=== PATIENT | male | born 1970 | race Caucasian/White ===

== ENCOUNTER 2018-09-26 14:12 | Inpatient (IN) | payer MEDICARE, MEDICAID ==
[~2018-09-26] VITALS: Ht 175.3 cm; Wt 80.3 kg
--- NOTE | 2018-09-26 14:19 | NUR ---
ARCENIO RICHARD FROM [facility] FOR EVAL AND TX OF WOUND, BOTH FEET. WOUNDS ARE OPEN TO AIR, CRUSTY. PT AOX4, VSS, RR EVEN AND UNLABORED ON RA. TO ER BED 13, MADE COMFORTABLE AND READY FOR EVAL.
[2018-09-26] MEDS ORDERED: ONDANSETRON HCL/PF 4 MG/2 ML VIAL ONE (14:42)
[2018-09-26] MEDS ORDERED: MORPHINE SULFATE INJ 4 MG/ML DISP.SYRIN ONE (14:42)
[2018-09-26] MEDS ORDERED: MORPHINE SULFATE INJ 2 MG/ML DISP.SYRIN IV ONE (15:00)
[2018-09-26] MEDS ORDERED: ONDANSETRON HCL/PF 4 MG/2 ML VIAL IVP ONE (15:00)
[2018-09-26] MEDS ORDERED: IV NS 0.9% 1,000 ML BAG IV ONE (15:00)
[2018-09-26 15:10] LABS: BASOPHILS % (AUTO) 0.4 % (0.0-2.0); EOSINOPHILS % (AUTO) 1.3 % (0.0-6.0); HEMATOCRIT 27 % (39-51); LYMPHOCYTES # (AUTO) 0.9 /CMM (0.8-4.8); LYMPHOCYTES % (AUTO) 8.9 % (20.0-44.0); MEAN CORPUSCULAR HGB CONC 33 g/dl (31.0-36.0); MEAN CORPUSCULAR VOLUME 80 fL (80-96); MONOCYTES # (AUTO) 0.6 /CMM (0.1-1.30); MONOCYTES % (AUTO) 5.7 % (2.0-12.0); NEUTROPHILS # (AUTO) 8.7 /CMM (1.8-8.9); NEUTROPHILS % (AUTO) 83.7 % (43.0-81.0); PLATELET COUNT (AUTO) 533 /CMM (150-450); RED BLOOD CELL COUNT(AUTO) 3.38 MIL/uL (4.5-6.0); WHITE BLOOD COUNT (AUTO) 10.4 K/uL (4.3-11.0)
[2018-09-26] MEDS ORDERED: AMOX875T2 PO (15:14)
[2018-09-26 15:17] LABS: CALCIUM, SERUM 8.4 mg/dL (8.5-10.1); CREATININE 1.1 mg/dL (0.6-1.3); POTASSIUM 4.3 mmol/L (3.5-5.1)
--- NOTE | 2018-09-26 15:17 | NUR ---
URINE SENT TO STAT LAB
[2018-09-26 15:22] LABS: ALBUMIN 2.4 g/dL (3.4-5.0); BILIRUBIN,DIRECT 0.2 mg/dL (0.0-0.2); BILIRUBIN,TOTAL 0.9 mg/dL (0.2-1.0); TOTAL PROTEIN, SERUM 8.6 g/dL (6.4-8.2)
[2018-09-26] MEDS ORDERED: PIPERACILLIN /TAZOBACTAM 3.375 G in IV D5W 50 ML IV ONE ×2 (16:00→23:30)
[2018-09-26] MEDS ORDERED: VANCOMYCIN 1 GM in IV D5W 250 ML IV ONE (16:00)
--- NOTE | 2018-09-26 16:02 | NUR ---
[facility] 315-2 Addendum: 09/26/18 at 1603 by STELLA 315-1
--- NOTE | 2018-09-26 16:18 | NUR ---
Patient is resting comfortably in bed with eyes closed. Easily aroused. VSS
[2018-09-26] MEDS ORDERED: VANCOMYCIN 1 GM VIAL ONE (16:34)
[2018-09-26] MEDS ORDERED: PIPERACILLIN /TAZOBACTAM 3.375 G VIAL IV ONE ×2 (16:34→23:28)
--- NOTE | 2018-09-26 17:57 | NUR ---
REPORT GIVEN TO LAMBERTO ÁLVAREZ FOR 315-1 MS
--- NOTE | 2018-09-26 18:00 | NUR ---
[facility]
--- NOTE | 2018-09-26 18:20 | NUR ---
MS RN RECEIVED A NEW ADMISSION FROM ER, CAME IN W/ DX OF OSTEOMYELITIS AND HYPONATREMIA, 48 YEAR OLD MALE, AWAKE, ALERT,ORIENTED X4,NOT IN EWA FORM OF DISTRESS, LEFT FOOT CELLULITIS/OSTEOMYELITIS, DENIES PAIN AT THIS TIME, WILL MONITOR PATIENT'S CONDITION.ALL NEEDS ATTENDED.
[2018-09-26] MEDS ORDERED: MAGNESIUM HYDROXIDE 30 ML UDC PO PRN (18:30)
[2018-09-26] MEDS ORDERED: ZOLPIDEM TARTRATE 5 MG TABLET PO PRN (18:30)
[2018-09-26] MEDS ORDERED: Z GUARD REMEDY 2 OZ OINT TP PRN (18:30)
[2018-09-26] MEDS ORDERED: ACETAMINOPHEN 325 MG TABLET PO PRN (18:30)
[2018-09-26] MEDS ORDERED: MAG HYDROX/AL HYDROX/SIMETH 30 ML UDC PO PRN (18:30)
--- NOTE | 2018-09-26 18:35 | NUR ---
MS RN PATIENT TRANSFERRED TO ROOM 320 BED 1 PER ORDER. WILL ENDORSE TO FLIGHT CONTROL SPECIALIST FOR ADMISSION, CAN'T DO IT AT THIS TIME.
[2018-09-26] MEDS ORDERED: FEE PK DOSING 1 MIN EA MC ONE (18:46)
[2018-09-26 19:30] VITALS: BP 112/74
[2018-09-26 20:00] VITALS: BP 112/74
[2018-09-26] MEDS: IV NS 0.9% 1,000 ML IV PRN (22:06)
[2018-09-26] MEDS: MORPHINE SULFATE INJ 2 MG/ML DISP.SYRIN IV PRN (22:07)
[2018-09-26] MEDS: ONDANSETRON HCL/PF 4 MG/2 ML VIAL IVP PRN (22:08)
[2018-09-26] MEDS: PIPERACILLIN /TAZOBACTAM 3.375 G in IV D5W 50 ML IV SCH (23:34)
[2018-09-27] MEDS: VANCOMYCIN 0.75 GM in IV D5W 250 ML IV SCH ×3 (01:11→17:06)
[2018-09-27] MEDS ORDERED: PIPERACILLIN /TAZOBACTAM 3.375 G VIAL IV ONE (05:22)
--- NOTE | 2018-09-27 05:28 | NUR ---
RECEIVED PATIENT IN BED AWAKE. AO X 3, ABLE TO MAKE NEEDS KNOWN. NO ACUTE DISTRESS NOTED. MONITORED FOR PAIN. IV SITE PATENT, INTACT; FLUSHED. SKIN ASSESSMENT DONE. BOTH FEET COVERED IN DRESSING. SAFETY REMINDERS GIVEN. ON LOW BED WITH BILATERAL UPPER SIDE RAILS UP. CALL JOHN WITHIN EASY REACH. WILL CONTINUE TO MONITOR.
[2018-09-27] MEDS: PIPERACILLIN /TAZOBACTAM 3.375 G in IV D5W 50 ML IV SCH (05:45)
--- NOTE | 2018-09-27 06:00 | NUR ---
PATIENT ASLEEP, EASILY AROUSABLE. RESPIRATIONS EVEN. NO SIGNS OF PAIN NOTED. DUE MEDS GIVEN WITH NO ASE NOTED. IVF INFUSING ORDERED. NEEDS ATTENDED. SAFETY REMINDERS AND COMFORT MEASURES IN PLACE. WILL GIVE REPORT TO DAY SHIFT FOR CONTINUITY OF CARE.
[2018-09-27 06:48] LABS: BASOPHILS % (AUTO) 0.4 % (0.0-2.0); EOSINOPHILS % (AUTO) 3.1 % (0.0-6.0); HEMATOCRIT 22 % (39-51); HEMOGLOBIN 7.4 g/dL (13.5-17.5); LYMPHOCYTES # (AUTO) 0.8 /CMM (0.8-4.8); LYMPHOCYTES % (AUTO) 10.8 % (20.0-44.0); MEAN CORPUSCULAR HGB CONC 35 g/dl (31.0-36.0); MEAN CORPUSCULAR VOLUME 79 fL (80-96); MONOCYTES # (AUTO) 0.7 /CMM (0.1-1.30); MONOCYTES % (AUTO) 8.6 % (2.0-12.0); NEUTROPHILS # (AUTO) 5.9 /CMM (1.8-8.9); NEUTROPHILS % (AUTO) 77.1 % (43.0-81.0); PLATELET COUNT (AUTO) 442 /CMM (150-450); RED BLOOD CELL COUNT(AUTO) 2.73 MIL/uL (4.5-6.0); WHITE BLOOD COUNT (AUTO) 7.6 K/uL (4.3-11.0)
[2018-09-27 07:08] LABS: ALBUMIN 1.9 g/dL (3.4-5.0); BILIRUBIN,TOTAL 0.5 mg/dL (0.2-1.0); CALCIUM, SERUM 8.1 mg/dL (8.5-10.1); CREATININE 1.1 mg/dL (0.6-1.3); MAGNESIUM 1.9 mg/dL (1.8-2.4); PHOSPHORUS 3.6 mg/dL (2.5-4.9); POTASSIUM 4.4 mmol/L (3.5-5.1)
[2018-09-27 07:13] LABS: THYROID STIMULATING HORMONE 1.736 uIU/mL (0.358-3.74)
[2018-09-27 08:00] VITALS: BP 131/69
--- NOTE | 2018-09-27 10:30 | NUR ---
RN NOTE PT WAS RECEIVED FROM [facility] AT THIS TIME, REPORT RECEIVED FROM ISAÍAS ORANTES. PT A/O X3-4, BREATHING EVEN AND UNLABORED ON RA, WITH NO S/S OF ANY DISTRESS OR PAIN AT THIS TIME, IV IS PATENT AND INTACT, SAFETY PRECAUTIONS IN PLACE, CALL LIGHT WITHIN REACH, MONITOR PT ACCORDINGLY
[2018-09-27 11:07] VITALS: BP 95/63
[2018-09-27] MEDS: PIPERACILLIN /TAZOBACTAM 3.375 G in IV D5W 100 ML IV SCH ×2 (11:15→18:02)
[2018-09-27] MEDS: IV NS 0.9% 1,000 ML IV PRN (15:58)
[2018-09-27 16:00] VITALS: BP 120/72
[2018-09-27] MEDS: ONDANSETRON HCL/PF 4 MG/2 ML VIAL IVP PRN (18:24)
--- NOTE | 2018-09-27 18:32 | NUR ---
RN CLOSING NOTE PT IN BED AT LOWEST AND LOCKED POSITION WITH SIDE RAILS UP X2, A/O X3 BREATHING EVEN AND UNLABORED ON RA, NO S/S OF ANY DISTRESS OR PAIN AT THIS TIME, IV ARE PATENT AND INTACT WITH IV ABX CURRENTLY INFUSING, SAFETY PRECAUTIONS IN PLACE, CALL LIGHT WITHIN REACH, ALL NEEDS ATTENDED TOO, WILL ENDORSE TO COMMUNITY ASSISTANT RN FOR GABRIELE
[2018-09-27] MEDS ORDERED: MULT1TAB73 PO (18:37)
[2018-09-27] MEDS ORDERED: LACT1CAP69 PO (18:37)
--- NOTE | 2018-09-27 19:00 | NUR ---
MS RN OPENING NOTES Received patient A/O x4, awake, on Long's position on bed. Denies discomfort at this time. No SOB noted, on RA. With patent peripheral IV line LAC G#20 with NS infusing well @ 75ml/hr as ordered. Kept bed low and locked, siderails up, call light within easy reach. Will continue to monitor accordingly.
[2018-09-27 20:00] VITALS: BP 107/62
[2018-09-27] MEDS: VANCOMYCIN 1.25 GM in IV NS 0.9% 500 ML IV SCH (22:32)
[2018-09-28] MEDS: PIPERACILLIN /TAZOBACTAM 3.375 G in IV D5W 100 ML IV SCH ×3 (03:11→18:11)
[2018-09-28 06:41] LABS: BASOPHILS # (AUTO) 0.1 /CMM (0.0-0.2); BASOPHILS % (AUTO) 0.6 % (0.0-2.0); EOSINOPHILS % (AUTO) 2.7 % (0.0-6.0); HEMATOCRIT 23 % (39-51); LYMPHOCYTES # (AUTO) 0.9 /CMM (0.8-4.8); LYMPHOCYTES % (AUTO) 11.5 % (20.0-44.0); MEAN CORPUSCULAR HGB CONC 35 g/dl (31.0-36.0); MEAN CORPUSCULAR VOLUME 80 fL (80-96); MONOCYTES # (AUTO) 0.6 /CMM (0.1-1.30); MONOCYTES % (AUTO) 7.5 % (2.0-12.0); NEUTROPHILS # (AUTO) 6.4 /CMM (1.8-8.9); NEUTROPHILS % (AUTO) 77.7 % (43.0-81.0); PLATELET COUNT (AUTO) 477 /CMM (150-450); RED BLOOD CELL COUNT(AUTO) 2.87 MIL/uL (4.5-6.0); WHITE BLOOD COUNT (AUTO) 8.3 K/uL (4.3-11.0)
[2018-09-28 06:57] LABS: ALBUMIN 2.1 g/dL (3.4-5.0); BILIRUBIN,TOTAL 0.5 mg/dL (0.2-1.0); CALCIUM, SERUM 8.4 mg/dL (8.5-10.1); CREATININE 1.2 mg/dL (0.6-1.3); POTASSIUM 4.3 mmol/L (3.5-5.1); TOTAL PROTEIN, SERUM 7.6 g/dL (6.4-8.2)
--- NOTE | 2018-09-28 07:00 | NUR ---
RN OPENING NOTE PT IN BED AT LOWEST AND LOCKED POSITION WITH SIDE RAILS UP X2, A/O X3 BREATHING EVEN AND UNLABORED ON RA, NO S/S OF ANY DISTRESS OR PAIN AT THIS TIME, IV ARE PATENT AND INTACT, SAFETY PRECAUTIONS IN PLACE, CALL LIGHT WITHIN REACH, WILL MONITOR PT ACCORDINGLY
--- NOTE | 2018-09-28 07:00 | NUR ---
MS RN CLOSING NOTES Patient asleep, no discomfort noted. No new unusualities noted. Afebrile the whole shift. All due meds given, no ASE noted. All nursing needs attended. Kept bed low and locked. Call light within easy reach. Endorsed to the next shift.
[2018-09-28] MEDS: VANCOMYCIN 1.25 GM in IV NS 0.9% 500 ML IV SCH ×3 (07:11→23:17)
[2018-09-28 07:52] VITALS: BP 132/73
--- NOTE | 2018-09-28 08:00 | NUR ---
MS RN OPENING NOTES Received patient A/O x4, awake, on Long's position on bed. Denies discomfort at this time. No SOB noted, on RA. With patent peripheral IV line LAC G#20 with NS infusing well @ 75ml/hr as ordered. Kept bed low and locked, siderails up, call light within easy reach. On NPO due to left foot abscess debridement.Pt ate breakfast inspite of explaining the risks and benefits of pending sx but pt insists to refuse.Dr Patel aware and cancelled the procedure.Will continue to monitor accordingly.
[2018-09-28 15:40] VITALS: BP 110/72
[2018-09-28] MEDS: LACTOBACILLUS RHAMNOSUS GG 1 EACH CAP.SPRINK GT SCH (16:07)
[2018-09-28] MEDS ORDERED: DEXTROSE 50%-WATER 50 ML DISP.SYRIN IV PRN (17:30)
[2018-09-28] MEDS: INSULIN REGULAR, HUMAN 100 UNIT/ML 3 ML VIAL SQ PRN ×2 (18:04→22:40)
[2018-09-28] MEDS: BLOOD SUGAR DIAGNOSTIC 1 EACH STRIP IN SCH ×2 (18:05→22:15)
--- NOTE | 2018-09-28 18:46 | NUR ---
RN CLOSING NOTE PT IN BED AT LOWEST AND LOCKED POSITION WITH SIDE RAILS UP X2, A/O X3 BREATHING EVEN AND UNLABORED ON RA, NO S/S OF ANY DISTRESS OR PAIN AT THIS TIME, IV ARE PATENT AND INTACT WITH IV ABX CURRENTLY INFUSING, SAFETY PRECAUTIONS IN PLACE, CALL LIGHT WITHIN REACH, ALL NEEDS ATTENDED TOO, WILL ENDORSE TO PUPPET ENGINEER RN FOR GABRIELE
--- NOTE | 2018-09-28 19:20 | NUR ---
RN CLOSING NOTE PT IN BED AT LOWEST AND LOCKED POSITION WITH SIDE RAILS UP X2, A/O X3 BREATHING EVEN AND UNLABORED ON RA, NO S/S OF ANY DISTRESS OR PAIN AT THIS TIME, IV ARE PATENT AND INTACT WITH IV ABX CURRENTLY INFUSING, SAFETY PRECAUTIONS IN PLACE, CALL LIGHT WITHIN REACH, ALL NEEDS ATTENDED TOO, WILL ENDORSE TO HAND COREMAKER RN FOR GABRIELE
--- NOTE | 2018-09-28 19:35 | NUR ---
MS/RN OPENING NOTES PT RECEIVED AWAKE, FINISHING HIS DINNER. ON ROOM AIR, BREATHING EVEN AND UNLABORED. DENIES SOB AND PAIN AT THIS TIME. IV TO LAC PATENT AND INTACT RUNNING IVF ORDERED. HOB ELEVATED. URINAL AT BEDSIDE. PT FOR WOUND DEBRIDEMENT TOMORROW MORNING, PT AWARE. INFORMED PT OF NPO STATUS POST MIDNIGHT, PT VERBALIZED UNDERSTANDING. BED IN LOW/LOCKED POSITION WITH CALL LIGHT IN REACH, BILAT. UPPER SIDE RAILS IN PLACE. BED ALARM ON FOR SAFETY. WILL CONTINUE TO MONITOR
[2018-09-28 20:00] VITALS: BP_SYST 110; BP_SYST 96; BP_DIAS 61; BP_DIAS 78
[2018-09-29] VITALS (10 sets, daily range): BP systolic 100–122; BP diastolic 64–82
[2018-09-29] MEDS: PIPERACILLIN /TAZOBACTAM 3.375 G in IV D5W 100 ML IV SCH ×2 (03:30→11:33)
[2018-09-29 06:33] LABS: BASOPHILS % (AUTO) 0.7 % (0.0-2.0); EOSINOPHILS % (AUTO) 4.4 % (0.0-6.0); HEMATOCRIT 22 % (39-51); HEMOGLOBIN 7.7 g/dL (13.5-17.5); LYMPHOCYTES # (AUTO) 1.1 /CMM (0.8-4.8); LYMPHOCYTES % (AUTO) 16.4 % (20.0-44.0); MEAN CORPUSCULAR HGB CONC 34 g/dl (31.0-36.0); MEAN CORPUSCULAR VOLUME 80 fL (80-96); MONOCYTES # (AUTO) 0.5 /CMM (0.1-1.30); MONOCYTES % (AUTO) 7.2 % (2.0-12.0); NEUTROPHILS # (AUTO) 4.6 /CMM (1.8-8.9); NEUTROPHILS % (AUTO) 71.3 % (43.0-81.0); PLATELET COUNT (AUTO) 545 /CMM (150-450); RED BLOOD CELL COUNT(AUTO) 2.81 MIL/uL (4.5-6.0); WHITE BLOOD COUNT (AUTO) 6.4 K/uL (4.3-11.0)
[2018-09-29 06:53] LABS: POTASSIUM 4.2 mmol/L (3.5-5.1)
[2018-09-29] MEDS: VANCOMYCIN 1.25 GM in IV NS 0.9% 500 ML IV SCH (07:00)
[2018-09-29] MEDS: BLOOD SUGAR DIAGNOSTIC 1 EACH STRIP IN SCH ×5 (07:28→21:15)
[2018-09-29] MEDS: INSULIN REGULAR, HUMAN 100 UNIT/ML 3 ML VIAL SQ PRN ×4 (07:29→21:17)
--- NOTE | 2018-09-29 07:30 | NUR ---
MS/RN CLOSING NOTES PT AWAKE, SITTING UP IN BED. ON ROOM AIR, BREATHING EVEN AND UNLABORED. DENIES SOB AND PAIN AT THIS TIME. IV TO LAC PATENT AND INTACT. KEPT NPO AFTER MIDNIGHT. CONSENTS AND CHECKLIST COMPLETED. SLEPT WELL DURING SHIFT. DRESSING TO LEFT FOOT CHANGED. ANTICIPATING WOUND DEBRIDEMENT TODAY AT 1000. PT VERBALIZED UNDERSTANDING. HEELS OFFLOADED AT ALL TIMES. NO SIGNIFICANT CHANGES OVERNIGHT. ALL NEEDS MET. BED REMAINS IN LOW/LOCKED POSITION WITH CALL LIGHT IN REACH. BILAT.UPPER SIDE RAILS IN PLACE. HOB ELEVATED. ENDORSED TO DAY SHIFT RN GABRIELE.
--- NOTE | 2018-09-29 07:35 | NUR ---
MS RN OPENING NOTE RECEIVED PT IN BED, ALERT AND ORIENTED X4, DENIES CHEST PAIN, SOB, N/V, BREATHING IS EVEN AND UNLABORED ON ROOM AIR. NO ACUTE DISTRESS NOTED AT THIS TIME. LEFT AC #20G IS INFUSING NS @ 75ML/HR WITHOUT REDNESS OR SWELLING. NPO STATUS MAINTAINED. PT IS SCHEDULED FOR DEBRIDEMENT IN OR WITH TODAY AT 1000. ALL NEEDS ATTENDED TO. BED IS LOCKED AND IN LOWEST POSITION, SIDE RAILS UP X2, BED ALARM ON, CALL LIGHT AND POSSESSIONS WITHIN REACH.
[2018-09-29] MEDS: LACTOBACILLUS RHAMNOSUS GG 1 EACH CAP.SPRINK GT SCH ×2 (08:19→16:43)
--- NOTE | 2018-09-29 09:00 | NUR ---
MS RN NOTE PT OFF UNIT FOR WOUND DEBRIDEMENT IN OR. CONSENTS SIGNED AND PLACED IN CHART. OR CHECK LIST COMPLETED.
[2018-09-29] MEDS ORDERED: LIDOCAINE HCL/PF 1% 30 ML SDV ONE (09:13)
[2018-09-29] MEDS ORDERED: BACITRACIN 50000 UNITS/VIAL ONE (09:43)
[2018-09-29] MEDS ORDERED: GELATIN SPONGE,ABSORBABLE 1 EA SPONGE TP ONE (09:55)
[2018-09-29] MEDS ORDERED: CELLULOSE,OXIDIZED 1 EA PACK MC ONE (09:56)
--- NOTE | 2018-09-29 10:50 | NUR ---
MS RN NOTE PT BACK FROM PROCEDURE IN OR. PT IS ALERT AND ORIENTED TO SELF AND PLACE, VS OBTAINED BP: 122/82, HR: 83, R: 16, SP02 100%. VS MONITORING INITIATED PER PROTOCOL. POST OP ORDERS OBTAINED AND INITIATED.
[2018-09-29] MEDS ORDERED: VANCOMYCIN 1.25 GM in IV NS 0.9% 500 ML IV SCH (14:00)
--- NOTE | 2018-09-29 16:03 | NUR ---
MS RN NOTE PER PHARMACIST CONTINUE TO HOLD VANCO UNTIL REASSESSMENT BY PHARMACY TOMORROW.
[2018-09-29] MEDS: LEVOFLOXACIN (500MG) 500 MG TABLET PO SCH (16:43)
--- NOTE | 2018-09-29 16:50 | NUR ---
MS RN NOTE INFORMED KITCHEN OF PT REQUEST FOR NO BEEF, FISH, OR PORK PRODUCTS, ONLY CHICKEN FOR MEAT OPTIONS, ORDER UPDATED.
--- NOTE | 2018-09-29 18:11 | NUR ---
MS RN CLOSING NOTE PT IN BED, ALERT AND ORIENTED X4, DENIES CHEST PAIN, SOB, N/V, BREATHING IS EVEN AND UNLABORED ON ROOM AIR. NO ACUTE DISTRESS NOTED AT THIS TIME. RIGHT WRIST #18G IS INFUSING NS @ 75ML/HR AND LEFT AC #20G IS SALINE LOCKED WITHOUT REDNESS OR SWELLING. VS WITHIN BASELINE POST LEFT LOWER EXTREMITY WOUND DEBRIDEMENT IN OR TODAY. DRESSING IS CLEAN, AND INTACT. PT RATES PAIN 3/10 AND DENIES NEED FOR PRN PAIN MEDICATION AT THIS TIME. ADLS PROVIDED AND PT ASSISTED TO TURN AND REPOSITION Q2H FOR THE DURATION OF THE SHIFT. ALL NEEDS ATTENDED TO. BED IS LOCKED AND IN LOWEST POSITION, SIDE RAILS UP X2, BED ALARM ON, CALL LIGHT AND POSSESSIONS WITHIN REACH. WILL ENDORSE TO DIRECTOR PHARMACOLOGY NURSE FOR CONTINUITY OF CARE.
--- NOTE | 2018-09-29 20:30 | NUR ---
RN NOTES PATIENT IS ALERT AND ORIENTED X3, STABLE ON ROOM AIR, S/P LEFT FOOT DEBRIDEMENT 09/29/18, PER PATIENT, PAIN IS MANAGEABLE AT THIS TIME, TALKING TO SELF, HX OF BIPOLAR DISORDER, DENIES VISUAL HALLUCINATION, LEFT FOOT SX SITE IS SECURED WITH DRESSING, DRY AND CLEAN, KEPT SAFE, CALL LIGHT WITHIN REACH.
--- NOTE | 2018-09-29 21:34 | NUR ---
RN NOTES PATIENT IS AGGRESSIVE, SCREAMING, SUSPICIOUS OF RN, ANAHYR, THREATENING TO THROW CALL LIGHT, ENCOURAGED PATIENT TO VERBALIZE HIS CONCERNS, PATIENT IS STILL AGGRESSIVE, CALLED CERTIFIED ADAPTED PHYSICAL EDUCATOR, NOTIFIED DR. CHEW, NO NEW ORDER. PATIENT HAS HX OF BIPOLAR DISORDER, NO PSYCHOTROPICS MEDICATIONS ON FILE. LEFT PATIENT ALONE TO DE-ESCALATE, KEPT SAFE, WILL CONTINUE TO MONITOR.
[2018-09-30] MEDS: VANCOMYCIN 0.75 GM in IV NS 0.9% 250 ML IV SCH ×3 (00:25→16:00)
[2018-09-30] MEDS: IV NS 0.9% 1,000 ML IV PRN ×2 (06:01→22:28)
--- NOTE | 2018-09-30 06:25 | NUR ---
RN NOTES PATIENT IS ALERT AND ORIENTED X3, TALKS TO SELF, STABLE ON ROOM AIR, NO COMPLAIN OF PAIN, S/P LEFT FOOT WOUND DEBRIDEMENT, SECURED WITH DRESSING, CLEAN DRY AND INTACT, NO DRAINAGE, VANCO TROUGH 18 DONE AT 2300, GIVEN VANCO 0.75 GRAM, REFUSED PAIN MEDICATION, PER PATIENT NUMBNESS TO LEFT FOOT AND LESS NUMBNESS TO RIGHT FOOT, BEDREST, USES URINAL TO VOID, WOUND CARE STARTS TODAY
[2018-09-30] MEDS: INSULIN REGULAR, HUMAN 100 UNIT/ML 3 ML VIAL SQ PRN ×3 (06:41→22:20)
[2018-09-30 07:21] LABS: CALCIUM, SERUM 7.6 mg/dL (8.5-10.1); CREATININE 1.1 mg/dL (0.6-1.3); POTASSIUM 3.8 mmol/L (3.5-5.1)
--- NOTE | 2018-09-30 07:30 | NUR ---
MS/RN Patient received Patient received from shift mechanic. A/O X3, with periods of confusion, patient also hyper verbal at times, tending to ramble and unable to stay on course of conversation. Vital signs stable, dressing to left lower leg dry and intact, no drainage noted. Bed in low setting, side rails X3 in upright position, call light within reach. Will continue to monitor and ensure safety.
[2018-09-30] MEDS: LACTOBACILLUS RHAMNOSUS GG 1 EACH CAP.SPRINK GT SCH ×2 (07:31→16:00)
[2018-09-30 08:01] VITALS: BP 113/64
--- NOTE | 2018-09-30 09:00 | NUR ---
MS/RN Medications Morning medications administered as ordered.
--- NOTE | 2018-09-30 11:06 | NUR ---
MS/RN Picc line Patient consented for picc line placement.
--- NOTE | 2018-09-30 11:12 | NUR ---
MS/RN Picc line insertion Picc line nurse at bedside for line insertion.
[2018-09-30] MEDS: BLOOD SUGAR DIAGNOSTIC 1 EACH STRIP IN SCH ×3 (12:06→22:11)
--- NOTE | 2018-09-30 14:00 | NUR ---
MS/RN S/B Donovan Moreno Seen by DNP - made aware that patient was becoming increasingly agitated and non compliant with care. Psych consult order with Dr Orantes. Face sheet faxed to [employer], social media community manager made aware. Morning labs ordered.
[2018-09-30] MEDS: MORPHINE SULFATE INJ 2 MG/ML DISP.SYRIN IV PRN ×2 (14:22→21:34)
[2018-09-30] MEDS: LEVOFLOXACIN (500MG) 500 MG TABLET PO SCH (15:59)
[2018-09-30 16:00] VITALS: BP 115/59
--- NOTE | 2018-09-30 17:30 | NUR ---
MS/RN Refused bolld sugar Patient refused for blood sugar to be checked. Educated as to the importance but still refusing.
--- NOTE | 2018-09-30 19:00 | NUR ---
MS/RN End note Patient remains uncooperative, throwing several items to the floor including blood pressure cuff and food. When asked why he was continuing to do this, stated that "i want to". Attempted to reorient patient, will endorse to shift production supervisor.
[2018-09-30 20:00] VITALS: BP 135/76
[2018-09-30] MEDS: HYDROCODONE/APAP 5/325MG 1 EACH TABLET PO PRN (22:19)
[2018-10-01] MEDS: VANCOMYCIN 0.75 GM in IV NS 0.9% 250 ML IV SCH ×2 (00:58→08:00)
[2018-10-01] MEDS: HYDROCODONE/APAP 5/325MG 1 EACH TABLET PO PRN (05:55)
--- NOTE | 2018-10-01 06:24 | NUR ---
MS RN NOTES AWAKE & RESPONSIVE. NOT IN ANY DISTRESS. NO SOB NOTED. DENIES ANY PAIN OR DISCOMFORT AT THIS TIME. WITH PICC LINE PATENT & INTACT. CALL LIGHT WITHIN REACH. BED IN LOWEST POSITION. SR UP X 2 FOR SAFETY. WILL ENDORSE TO NEXT SHIFT.
[2018-10-01] MEDS: BLOOD SUGAR DIAGNOSTIC 1 EACH STRIP IN SCH ×4 (07:04→21:09)
--- NOTE | 2018-10-01 07:31 | NUR ---
MS RN NOTES PATIENT RECEIVED RESTING INSIDE ROOM. SLEEPING, EASILY AROUSABLE THROUGH VERBAL AND TACTILE STIMULI. BREATHING EVEN AND UNLABORED. NO ACUTE DISTRESS. DENIES ANY PAIN OR DISCOMFORT. CAITLIN PICCLINE IN PLACE AND FLUSHING WELL. LEFT FOOT DRESSING IN PLACE, NO DRAINAGE OR BLEEDING NOTED ON SITE. WILL CONTINUE TO MONITOR. BED LOCKED AND IN LOW POSITION. BILATERAL UPPER SIDE RAILS UP AND LOCKED. CALL LIGHT WITHIN EASY REACH
[2018-10-01 08:00] VITALS: BP 133/78
[2018-10-01 08:01] LABS: BASOPHILS % (AUTO) 0.4 % (0.0-2.0); EOSINOPHILS % (AUTO) 2.9 % (0.0-6.0); LYMPHOCYTES % (AUTO) 12.6 % (20.0-44.0); MEAN CORPUSCULAR HGB CONC 33 g/dl (31.0-36.0); MEAN CORPUSCULAR VOLUME 81 fL (80-96); MONOCYTES # (AUTO) 0.4 /CMM (0.1-1.30); MONOCYTES % (AUTO) 5.7 % (2.0-12.0); NEUTROPHILS % (AUTO) 78.4 % (43.0-81.0); PLATELET COUNT (AUTO) 492 /CMM (150-450); RED BLOOD CELL COUNT(AUTO) 2.52 MIL/uL (4.5-6.0); WHITE BLOOD COUNT (AUTO) 7.6 K/uL (4.3-11.0)
[2018-10-01 08:12] LABS: HEMOGLOBIN 6.7 g/dL (13.5-17.5)
[2018-10-01 08:13] LABS: HEMATOCRIT 20 % (39-51)
[2018-10-01 08:16] LABS: CALCIUM, SERUM 8.4 mg/dL (8.5-10.1); CREATININE 0.9 mg/dL (0.6-1.3); MAGNESIUM 1.6 mg/dL (1.8-2.4); PHOSPHORUS 3.6 mg/dL (2.5-4.9); POTASSIUM 3.5 mmol/L (3.5-5.1)
[2018-10-01] MEDS: LACTOBACILLUS RHAMNOSUS GG 1 EACH CAP.SPRINK GT SCH ×2 (08:29→16:20)
--- NOTE | 2018-10-01 08:33 | NUR ---
MS RN NOTES RECEIVED CALL FROM LAB WITH REPORT OF CRITICAL LOW HGB 6.7. PATIENT CALM AND RELAXED. NO CHANGES IN LOC NOTED. VS WNL. HOSPITALIST MADE AWARE.
--- NOTE | 2018-10-01 08:34 | NUR ---
MS RN NOTES RECEIVED VANCO TROUGH RESULT OF 29. VANCOMYCIN DOSE HELD, PHARMACY MADE AWARE. WILL CONTINUE TO MONITOR
[2018-10-01] MEDS: Magnesium 1GM/D5W 100ML PREMIX 100 ML IV SCH ×2 (09:54→10:55)
--- NOTE | 2018-10-01 10:51 | NUR ---
MS RN NOTES DR CASTRO AT BEDSIDE FOR PSYCH EVAL
[2018-10-01 10:58] LABS: BAND % (MANUAL) 2 % (0.0-5.0); EOSINOPHILS % (MANUAL) 3 % (0-4); LYMPHOCYTES % (MANUAL) 19 % (16-48); MONOCYTES % (MANUAL) 5 % (0-11.0); NEUTROPHILS % (MANUAL) 71 (42-76)
[2018-10-01] MEDS: INSULIN REGULAR, HUMAN 100 UNIT/ML 3 ML VIAL SQ PRN ×3 (11:33→22:33)
--- NOTE | 2018-10-01 12:33 | NUR ---
MS RN NOTES VERIFIED INFORMED CONSENT FOR BLOOD TRANSFUSION OBTAINED BY HOSPITALIST FROM PATIENT. CONSENT SIGNED BY HOSPITALIST AND PROVIDED COPY TO BLOOD BANK. 1 UNIT PRBC OBTAINED FROM BLOOD BANK
[2018-10-01 12:45] VITALS: BP 117/73
--- NOTE | 2018-10-01 12:47 | NUR ---
MS RN NOTES VERIFIED 1 UNIT OF PRBC WITH LICENSED STAFF. STARTED BLOOD TRANSFUSION. PATIENT TOLERATING WELL.
[2018-10-01 13:00] VITALS: BP 110/61
[2018-10-01] MEDS: IV NS 0.9% 1,000 ML IV PRN (15:04)
[2018-10-01 16:00] VITALS: BP 127/79
[2018-10-01] MEDS: LEVOFLOXACIN (500MG) 500 MG TABLET PO SCH (16:20)
[2018-10-01 17:47] LABS: OCCULT BLOOD STOOL NEGATIVE (NEGATIVE)
--- NOTE | 2018-10-01 19:18 | NUR ---
MS RN NOTES PATIENT RESTING INSIDE ROOM. AWAKE, ALERT AND ORIENTED X 4, VERBALLY RESPONSIVE AND RESPONDS TO VERBAL AND TACTILE STIMULI. NO ACUTE DISTRESS. DENIES ANY PAIN OR DISCOMFORT. PICCLINE INTACT AND PATENT. PATIENT KEPT CLEAN, DRY AND COMFORTABLE. ENDORSED TO SHELLEY ORANTES FOR GABRIELE. CALL LIGHT WITHIN EASY REACH
[2018-10-01 19:46] VITALS: BP 122/71
[2018-10-01] MEDS ORDERED: PIPERACILLIN /TAZOBACTAM 3.375 G in IV D5W 50 ML IV ONE (20:00)
[2018-10-01] MEDS ORDERED: VANCOMYCIN 0.75 GM in IV D5W 250 ML IV SCH (21:00)
[2018-10-01] MEDS: VANCOMYCIN 0.75 GM in IV D5W 250 ML IV SCH (21:09)
[2018-10-02] MEDS: PIPERACILLIN /TAZOBACTAM 3.375 G in IV D5W 100 ML IV SCH ×3 (02:10→17:00)
[2018-10-02] MEDS: INSULIN REGULAR, HUMAN 100 UNIT/ML 3 ML VIAL SQ PRN ×2 (06:16→17:38)
[2018-10-02] MEDS: BLOOD SUGAR DIAGNOSTIC 1 EACH STRIP IN SCH ×4 (06:58→21:08)
--- NOTE | 2018-10-02 07:30 | NUR ---
MS/RN Patient received Patient received from shift supervisor. A/O X3, vital signs within normal range, no pain at this time. Dressing to left foot dry and intact. Picc line to left upper arm intact. Safety measures in place, bed in low setting, side rails X3 in upright position. Call light within reach, will continue to monitor and ensure safety.
[2018-10-02 08:00] VITALS: BP 100/61
--- NOTE | 2018-10-02 08:30 | NUR ---
MS/RN S/B Dr Carson Seen by MD - dressing to left foot dressed. Pictures taken and placed in chart.
[2018-10-02 08:40] LABS: MAGNESIUM 2.1 mg/dL (1.8-2.4)
[2018-10-02] MEDS: VANCOMYCIN 0.75 GM in IV D5W 250 ML IV SCH ×2 (08:45→21:06)
[2018-10-02] MEDS: LACTOBACILLUS RHAMNOSUS GG 1 EACH CAP.SPRINK GT SCH ×2 (08:45→16:59)
--- NOTE | 2018-10-02 09:14 | NUR ---
MS/RN Vancomycin Vancomycin hung as ordered, last level drawn at 2100 10/01/18, level resulted as 17.
--- NOTE | 2018-10-02 11:00 | NUR ---
MS/RN S/B Donovan Moreno DNP Seen by DNP - labs ordered for tomorrow. To continue with current IVAB and oral anti-biotics.
[2018-10-02 12:41] LABS: BASOPHILS % (AUTO) 0.5 % (0.0-2.0); EOSINOPHILS % (AUTO) 3.7 % (0.0-6.0); HEMATOCRIT 25 % (39-51); HEMOGLOBIN 8.5 g/dL (13.5-17.5); LYMPHOCYTES # (AUTO) 1.1 /CMM (0.8-4.8); LYMPHOCYTES % (AUTO) 13.7 % (20.0-44.0); MEAN CORPUSCULAR HGB CONC 34 g/dl (31.0-36.0); MEAN CORPUSCULAR VOLUME 80 fL (80-96); MONOCYTES # (AUTO) 0.4 /CMM (0.1-1.30); MONOCYTES % (AUTO) 4.9 % (2.0-12.0); NEUTROPHILS # (AUTO) 5.9 /CMM (1.8-8.9); NEUTROPHILS % (AUTO) 77.2 % (43.0-81.0); PLATELET COUNT (AUTO) 528 /CMM (150-450); RED BLOOD CELL COUNT(AUTO) 3.14 MIL/uL (4.5-6.0); WHITE BLOOD COUNT (AUTO) 7.7 K/uL (4.3-11.0)
--- NOTE | 2018-10-02 14:00 | NUR ---
MS/RN S/B Dr Orantes Seen by MD - no new orders at this time. To continue with current plan of care.
[2018-10-02 16:00] VITALS: BP 118/74
[2018-10-02] MEDS: HYDROCODONE/APAP 5/325MG 1 EACH TABLET PO PRN ×2 (16:59→21:07)
[2018-10-02] MEDS: LEVOFLOXACIN (500MG) 500 MG TABLET PO SCH (16:59)
--- NOTE | 2018-10-02 17:00 | NUR ---
MS/RN Pain Complaining of pain to left leg 09/01. [place] 5/325mg administered. Will monitor effectiveness.
--- NOTE | 2018-10-02 17:15 | NUR ---
MS/RN Blood sugar Blood sugar at 5p - 268, as per sliding scale, six units of regular insulin administered.
--- NOTE | 2018-10-02 18:25 | NUR ---
MS/RN End note Patient remains in stable condition, all needs addressed. Will endorse to shift supervisor rn.
[2018-10-02] MEDS ORDERED: LEVOFLOXACIN (500MG) 500 MG TABLET PO SCH (19:30)
--- NOTE | 2018-10-02 19:30 | NUR ---
MS RN NOTE: PATIENT RESTING IN BED, NO ACUTE DISTRESS NOTED. BREATHING EVEN AND UNLABORED, NO SOB NOTED. PICC LINE TO CAITLIN IN PLACE. NO S/S OF HYPER/HYPOGLYCEMIA NOTED. BED LOCKED AND IN LOWEST POSITION, CALL LIGHT IN REACH. WILL CONTINUE TO MONITOR.
[2018-10-02 20:23] VITALS: BP 109/65
--- NOTE | 2018-10-02 21:15 | NUR ---
MS RN NOTE: PATIENT BLOOD SUGAR LEVEL 122MG/DL, NO INSULIN NEEDED PER SLIDING SCALE. NO S/S HYPER/HYPOGLYCEMIA NOTED. PATIENT ALSO COMPLAINS OF PAIN TO LEFT FOOT, 7/10, NORCO 5/325MG 1 TAB ORAL GIVEN PER MD ORDER. WILL CONTINUE TO MONITOR.
--- NOTE | 2018-10-03 06:10 | NUR ---
MS RN NOTE: PATIENT RESTING IN BED, NO ACUTE DISTRESS NOTED. BREATHING EVEN AND UNLABORED, NO SOB NOTED. PICC LINE TO CAITLIN IN PLACE. PATIENT BLOOD SUGAR LEVEL 167MG/DL, TO RECEIVE 3 UNITS OF INSULIN PER SLIDING SCALE, NO S/S OF HYPER/HYPOGLYCEMIA NOTED. BED LOCKED AND IN LOWEST POSITION, CALL LIGHT IN REACH. WILL ENDORSE TO DAY NURSE TO CONTINUE WITH PLAN OF CARE.
[2018-10-03] MEDS: INSULIN REGULAR, HUMAN 100 UNIT/ML 3 ML VIAL SQ PRN (06:23)
[2018-10-03] MEDS: BLOOD SUGAR DIAGNOSTIC 1 EACH STRIP IN SCH ×3 (06:32→17:07)
[2018-10-03 06:54] LABS: CALCIUM, SERUM 8.2 mg/dL (8.5-10.1); CREATININE 1.1 mg/dL (0.6-1.3); POTASSIUM 3.8 mmol/L (3.5-5.1)
--- NOTE | 2018-10-03 07:43 | NUR ---
MS RN NOTES PATIENT RECEIVED RESTING INSIDE ROOM. SLEEPING, AROUSABLE THROUGH VERBAL AND TACTILE STIMULI. BREATHING EVEN AND UNLABORED. NO ACUTE DISTRESS. DENIES ANY PAIN OR DISCOMFORT. NO CHANGES IN LOC NOTED. PATIENT CALM AND RELAXED. DRESSING IN PLACE LEFT FOOT. CONTINUE NWB ON LLE. WILL CONTINUE TO MONITOR. BED LOCKED AND IN LOW POSITION. BILATERAL UPPER SIDE RAILS UP AND LOCKED. CALL LIGHT WITHIN EASY REACH
[2018-10-03 08:00] VITALS: BP 105/60
[2018-10-03] MEDS: HYDROCODONE/APAP 5/325MG 1 EACH TABLET PO PRN (08:07)
[2018-10-03] MEDS: LACTOBACILLUS RHAMNOSUS GG 1 EACH CAP.SPRINK GT SCH ×2 (08:07→16:29)
[2018-10-03] MEDS: VANCOMYCIN 0.75 GM in IV D5W 250 ML IV SCH (08:08)
--- NOTE | 2018-10-03 08:08 | NUR ---
MS RN NOTES VANCO TROUGH 24. DOSE THIS AM HELD. PHARMACY MADE AWARE
[2018-10-03 16:00] VITALS: BP 133/85
[2018-10-03] MEDS: LEVOFLOXACIN (500MG) 500 MG TABLET PO SCH (16:29)
[2018-10-03] MEDS ORDERED: METFORMIN 500 MG TABLET PO SCH (17:00)
--- NOTE | 2018-10-03 17:19 | NUR ---
MS RN NOTES PLACED CALL TO CHRISTOSHanh PENDLETON ([phone]) AND GAVE REPORT TO SHAYY ORANTES
--- NOTE | 2018-10-03 18:10 | NUR ---
MS RN NOTES PATIENT DISCHARGED TODAY. TO DISCHARGE TO [facility]. DISCHARGE INSTRUCTIONS AND EDUCATION PROVIDED TO PATIENT AND VERBALIZED UNDERSTANDING. ALL BELONGINGS COMPLETE ON DISCHARGE, NO REPORT OF MISSING INVENTORY, CAITLIN PICCLINE INTACT AND PATENT. NO NEW SKIN BREAKDOWN ON DISCHARGE. PATIENT LEFT UNIT AT 1805 VIA GURNEY IN STABLE CONDITION. NO ACUTE DISTRESS. DENIES ANY PAIN OR DISCOMFORT. HOSPITALIST AWARE OF DISCHARGE
[2018-10-03] MEDS ORDERED: VANCOMYCIN 0.75 GM in IV D5W 250 ML IV SCH (21:00)
== END 2018-10-03 18:05 | DRG 981 ==
LOC: ER 14:21 → MED 16:14 → MEDSG2 09-27 10:17
PROVIDERS: ADMIT Hospitalist; ATTEND Internal Medicine
PROC: 0KBW0ZZ Excision of Left Foot Muscle, Open Approach (ICD-10-PCS; principal; 2018-09-29)
PROC: 05H633Z Insertion of Infusion Device into Left Subclavian Vein, Percutaneous Approach (ICD-10-PCS; 2018-09-30)
PROC: B547ZZA Ultrasonography of Left Subclavian Vein, Guidance (ICD-10-PCS; 2018-09-30)
PROC: 30233P1 Transfusion of Nonautologous Frozen Red Cells into Peripheral Vein, Percutaneous Approach (ICD-10-PCS; 2018-10-01)
DX: E11.621 Type 2 diabetes mellitus with foot ulcer (principal); E43 Unspecified severe protein-calorie malnutrition; M86.9 Osteomyelitis, unspecified; E87.1 Hypo-osmolality and hyponatremia; L97.429 Non-pressure chronic ulcer of left heel and midfoot with unspecified severity; L03.116 Cellulitis of left lower limb; L02.612 Cutaneous abscess of left foot; F05 Delirium due to known physiological condition; E11.69 Type 2 diabetes mellitus with other specified complication; K21.9 Gastro-esophageal reflux disease without esophagitis; D64.9 Anemia, unspecified; D47.3 Essential (hemorrhagic) thrombocythemia; E88.09 Other disorders of plasma-protein metabolism, not elsewhere classified; I10 Essential (primary) hypertension; F31.9 Bipolar disorder, unspecified; Z91.19 Patient's noncompliance with other medical treatment and regimen; Z89.411 Acquired absence of right great toe; E11.42 Type 2 diabetes mellitus with diabetic polyneuropathy; E86.1 Hypovolemia; F41.9 Anxiety disorder, unspecified; E83.42 Hypomagnesemia
CPT/HCPCS: 36415; 71045-TC; 73590-TC; 73630-TC; 73718-TC; 80048-TC; 80053-TC; 80061-TC; 80076-TC; 80202-TC; 82272-TC; 82962-TC; 83605-TC; 83735-TC; 84100-TC; 84443-TC; 85025-TC; 85730-TC; 86850-TC; 86921-TC; 87040-TC; 87070-TC; 87081-TC; 87186-TC; 97530-TC; A4217; A6253; A6402; A6403; C1751; G0378; J1100; J1815; J2270; J2405; J2543; J3370; J3475; J3490; J7030; J7040; J7050; J7060; P9016-BL

== ENCOUNTER 2018-10-06 14:23 | Inpatient (IN) | payer MEDICARE, MEDICAID ==
[~2018-10-06] VITALS: Ht 172.7 cm; Wt 58.5 kg
[~2018-10-06 14:23] MED LIST: LACT1CAP69 PO; MULT1TAB73 PO
--- NOTE | 2018-10-06 14:40 | NUR ---
ARCENIOPA FROM FACILITY FOR FAILURE TO THRIVE; PT AAOX4, PT TO BED 6, NOTED WITH WOUND ON LEFT FOOT, DENIES PAIN/DISCOMFORT, MD MO AT FOR EVAL
[2018-10-06 14:54] LABS: BASOPHILS # (AUTO) 0.1 /CMM (0.0-0.2); BASOPHILS % (AUTO) 0.8 % (0.0-2.0); HEMATOCRIT 29 % (39-51); HEMOGLOBIN 9.4 g/dL (13.5-17.5); LYMPHOCYTES # (AUTO) 1.1 /CMM (0.8-4.8); LYMPHOCYTES % (AUTO) 16.2 % (20.0-44.0); MEAN CORPUSCULAR HGB CONC 33 g/dl (31.0-36.0); MEAN CORPUSCULAR VOLUME 83 fL (80-96); MONOCYTES # (AUTO) 0.3 /CMM (0.1-1.30); MONOCYTES % (AUTO) 4.1 % (2.0-12.0); NEUTROPHILS # (AUTO) 5.3 /CMM (1.8-8.9); NEUTROPHILS % (AUTO) 76.9 % (43.0-81.0); PLATELET COUNT (AUTO) 586 /CMM (150-450); WHITE BLOOD COUNT (AUTO) 6.9 K/uL (4.3-11.0)
[2018-10-06 15:01] LABS: CALCIUM, SERUM 8.8 mg/dL (8.5-10.1); CREATININE 1.2 mg/dL (0.6-1.3); POTASSIUM 4.1 mmol/L (3.5-5.1)
[2018-10-06 15:07] LABS: ALBUMIN 2.7 g/dL (3.4-5.0); BILIRUBIN,DIRECT 0.1 mg/dL (0.0-0.2); BILIRUBIN,TOTAL 0.3 mg/dL (0.2-1.0); TOTAL PROTEIN, SERUM 8.4 g/dL (6.4-8.2)
[2018-10-06] MEDS ORDERED: AMOX875T2 PO (15:23)
[2018-10-06] MEDS ORDERED: ZOLPIDEM TARTRATE 5 MG TABLET PO PRN (16:30)
[2018-10-06] MEDS ORDERED: Z GUARD REMEDY 2 OZ OINT TP PRN (16:30)
[2018-10-06] MEDS ORDERED: MAGNESIUM HYDROXIDE 30 ML UDC PO PRN (16:30)
[2018-10-06] MEDS ORDERED: ONDANSETRON HCL/PF 4 MG/2 ML VIAL IVP PRN (16:30)
[2018-10-06] MEDS ORDERED: MAG HYDROX/AL HYDROX/SIMETH 30 ML UDC PO PRN (16:30)
--- NOTE | 2018-10-06 16:30 | NUR ---
REPORT GIVEN TO ANDREINA ORANTES FOR GABRIELE PT WILL BE TRANSPORTED TO MS2
[2018-10-06] MEDS: LEVOFLOXACIN 500 MG /D5W 100ML 500 MG in PREMIX 1 EA IV SCH (18:07)
[2018-10-06] MEDS: risperiDONE 1 MG TABLET PO SCH (18:58)
--- NOTE | 2018-10-06 19:35 | NUR ---
RN OPEN NOTES RECEIVED PATIENT AWAKE IN BED. A/OX3. NO SIGNS OF DISTRESS OR DISCOMFORT. BREATHING EVEN AND UNLABORED. IV ACCESS IN LAC WITH LEVAQUIN INFUSING, PATENT AND INTACT, NO SIGNS OF REDNESS OR INFILTRATION. DENIES ANY PAIN AT THIS TIME. BED IN LOW LOCKED POSITION WITH SIDE RAILS X23. CALL LIGHT WITHIN REACH. WILL CONTINUE TO MONITOR.
--- NOTE | 2018-10-06 19:49 | NUR ---
MS CREDIT COUNSELOR NOTES RECEIVED PT FROM [facility] [employer]. ARRIVED AT THE UNIT AT 1650 WITH 2 NURSES ASSIST. PT AWAKE, A/O X 3. TOLERATING RA, WITH NO ACUTE RESPIRATORY DISTRESS NOTED. PT ACCOMPANIED BY MOTHER WITH PT'S BELONGINGS. BELONGINGS LISTED TO INVENTORY LIST. ADMISSION INFORMATION AND HISTORY PROVIDED BY PT AND MOTHER AT BEDSIDE. ADMITTING MD/MERARI AWARE OF ADMISSION. WOUND PICTURES TAKEN AND FILED IN THE CHART. PT DENIES ANY PAIN OR DISCOMFORT AT THE TIME OF ARRIVAL. PT ORIENTED IN THE ROOM, STAFF, MEAL TIMES, CALL BUTTON, ETC. ALL NEEDS ATTENDED. PT KEPT COMFORTABLE. PT'S BED IN LOWEST, LOCKED POSITION WITH SR X 2. CALL LIGHT WITHIN REACH. WILL CONTINUE TO MONITOR.
[2018-10-06] MEDS ORDERED: FEE PK DOSING 1 MIN EA MC ONE (19:58)
[2018-10-06 20:00] VITALS: BP 100/58
[2018-10-06] MEDS: VANCOMYCIN 1 GM in IV D5W 250 ML IV SCH (21:05)
[2018-10-06] MEDS: HYDROCODONE/APAP 5/325MG 1 EACH TABLET PO PRN (23:22)
--- NOTE | 2018-10-06 23:22 | NUR ---
RN NOTES ADMINISTERED NORCO 5/325 ORDERED FOR 01/02 IN BUTTOCK/ANUS AREA, AT PATIENT REQUEST. WILL CONTINUE TO MONITOR.
[2018-10-07 06:31] LABS: BASOPHILS % (AUTO) 0.6 % (0.0-2.0); EOSINOPHILS % (AUTO) 2.4 % (0.0-6.0); HEMATOCRIT 26 % (39-51); HEMOGLOBIN 8.6 g/dL (13.5-17.5); LYMPHOCYTES # (AUTO) 1.3 /CMM (0.8-4.8); LYMPHOCYTES % (AUTO) 16.4 % (20.0-44.0); MEAN CORPUSCULAR HGB CONC 33 g/dl (31.0-36.0); MEAN CORPUSCULAR VOLUME 81 fL (80-96); MONOCYTES # (AUTO) 0.4 /CMM (0.1-1.30); MONOCYTES % (AUTO) 4.5 % (2.0-12.0); NEUTROPHILS # (AUTO) 6.1 /CMM (1.8-8.9); NEUTROPHILS % (AUTO) 76.1 % (43.0-81.0); PLATELET COUNT (AUTO) 538 /CMM (150-450); RED BLOOD CELL COUNT(AUTO) 3.17 MIL/uL (4.5-6.0)
--- NOTE | 2018-10-07 06:42 | NUR ---
RN OPEN NOTES PATIENT AWAKE IN BED. A/OX3. NO SIGNS OF DISTRESS OR DISCOMFORT. BREATHING EVEN AND UNLABORED. IV ACCESS IN LAC, PATENT AND INTACT, NO SIGNS OF REDNESS OR INFILTRATION. DENIES ANY PAIN AT THIS TIME. ALL NEEDS MET. NO SIGNIFICANT CHANGES THROUGH THE NIGHT. DRESSING ON LLE C/D/I. BED IN LOW LOCKED POSITION WITH SIDE RAILS X3. CALL LIGHT WITHIN REACH. WILL ENDORSE TO AM SHIFT FOR GABRIELE.
[2018-10-07 06:45] LABS: CALCIUM, SERUM 8.6 mg/dL (8.5-10.1); CREATININE 1.2 mg/dL (0.6-1.3); PHOSPHORUS 3.7 mg/dL (2.5-4.9); POTASSIUM 4.3 mmol/L (3.5-5.1)
--- NOTE | 2018-10-07 07:23 | NUR ---
MS RN OPENING NOTES RECEIVED PT IN BED. AWAKE. A/O-2-3. TOLERATING RA, WITH NO ACUTE RESPIRATORY DISTRESS NOTED. PT DENIES PAIN OR ANY DISCOMFORT AT THIS MOMENT. PT DENIES ANY CONCERNS AND QUESTIONS AT THIS TIME WELL. PT KEPT COMFORTABLE. CALL LIGHT AND FLUID KEPT WITHIN REACH. WILL CONTINUE PLAN OF CARE.
[2018-10-07 08:00] VITALS: BP 107/60
[2018-10-07] MEDS: risperiDONE 1 MG TABLET PO SCH ×2 (08:01→16:19)
[2018-10-07] MEDS: VANCOMYCIN 1 GM in IV D5W 250 ML IV SCH ×2 (08:03→21:03)
[2018-10-07] MEDS: ACETAMINOPHEN 325 MG TABLET PO PRN ×2 (08:05→17:25)
--- NOTE | 2018-10-07 09:45 | NUR ---
RN NOTES SEEN AND EVALUATED BY /SK. MD AWARE OF WOUND CONSULT, /SK NOTIFIED DR DARLING VIA PHONE AND A PODIATRY CONSULT. PT MADE AWARE. WILL CONTINUE TO MONITOR.
[2018-10-07 16:00] VITALS: BP 121/73
[2018-10-07] MEDS: LACTOBACILLUS RHAMNOSUS GG 1 EACH CAP.SPRINK PO SCH (16:19)
[2018-10-07] MEDS: BENZTROPINE MESYLATE (1 MG) 1 MG TABLET PO SCH (16:20)
[2018-10-07] MEDS: LEVOFLOXACIN 500 MG /D5W 100ML 500 MG in PREMIX 1 EA IV SCH (17:25)
--- NOTE | 2018-10-07 19:33 | NUR ---
MS RN CLOSING NOTES PT REMAINS IN BED. AWAKE. A/O-2-3. TOLERATING RA, WITH NO ACUTE RESPIRATORY DISTRESS NOTED. PT DENIES PAIN OR ANY DISCOMFORT AT THIS MOMENT. PIV TO LAC G18, ON GOING IV LEVAQUIN, INFUSING WELL WITH NO INFILTRATION NOTED. FOOT DRESSING CHANGED THIS AFTERNOON. ALL NEEDS AND CARE PROVIDED. PT KEPT COMFORTABLE. CALL LIGHT AND FLUID KEPT WITHIN REACH. ENDORSED TO BALE SEWER NURSE FOR GABRIELE.
--- NOTE | 2018-10-07 19:50 | NUR ---
MS RN NOTE: PATIENT RESTING IN BED, NO ACUTE DISTRESS NOTED. BREATHING EVEN AND UNLABORED, NO SOB NOTED. IV TO LAC IN PLACE. BED LOCKED AND IN LOWEST POSITION, CALL LIGHT IN REACH. WILL CONTINUE TO MONITOR.
[2018-10-07 20:00] VITALS: BP 119/64
[2018-10-07] MEDS: HYDROCODONE/APAP 5/325MG 1 EACH TABLET PO PRN (21:17)
--- NOTE | 2018-10-07 21:30 | NUR ---
MS RN NOTE: PATIENT COMPLAINS OF PAIN TO LLE 11/01, NORCO 5/325MG 1 TAB ORAL GIVEN PER MD ORDER. WILL CONTINUE TO MONITOR.
--- NOTE | 2018-10-07 23:30 | NUR ---
MS RN NOTE: PATIENT ACCIDENTALLY PULLED OUT IV, NEW IV STARTED TO RFA #22 WITH GOOD BLOOD RETURN. OLD IV TO LAC COVERED WITH GAUZE, PRESSURE APPLIED, AND SECURED WITH TAPE. WILL CONTINUE TO MONITOR.
[2018-10-08] MEDS: HYDROCODONE/APAP 5/325MG 1 EACH TABLET PO PRN ×2 (04:37→09:07)
--- NOTE | 2018-10-08 06:35 | NUR ---
MS RN NOTE: PATIENT RESTING IN BED, NO ACUTE DISTRESS NOTED. BREATHING EVEN AND UNLABORED, NO SOB NOTED. IV TO RFA IN PLACE. BED LOCKED AND IN LOWEST POSITION, CALL LIGHT IN REACH. WILL ENDORSE TO DAY NURSE TO CONTINUE WITH PLAN OF CARE.
[2018-10-08 07:11] LABS: CALCIUM, SERUM 8.7 mg/dL (8.5-10.1); CREATININE 1.1 mg/dL (0.6-1.3); POTASSIUM 4.1 mmol/L (3.5-5.1)
--- NOTE | 2018-10-08 07:30 | NUR ---
MS RN OPENING NOTE RECEIVED PT IN BED, ALERT AND ORIENTED X4. DENIES CHEST PAIN, SOB, N/V, BREATHING IS EVEN AND UNLABORED ON ROOM AIR. NO ACUTE DISTRESS NOTED AT THIS TIME. RIGHT FA #22G IS SALINE LOCKED WITHOUT REDNESS OR SWELLING. ALL NEEDS ATTENDED TO. BED IS LOCKED AND IN LOWEST POSITION, SIDE RAILS UP X2, BED ALARM ON, CALL LIGHT AND POSSESSIONS WITHIN REACH.
[2018-10-08 08:00] VITALS: BP 128/74
[2018-10-08] MEDS: VANCOMYCIN 1 GM in IV D5W 250 ML IV SCH ×2 (08:27→21:06)
[2018-10-08] MEDS: risperiDONE 1 MG TABLET PO SCH ×2 (08:27→17:13)
[2018-10-08] MEDS: LACTOBACILLUS RHAMNOSUS GG 1 EACH CAP.SPRINK PO SCH ×2 (08:27→17:13)
--- NOTE | 2018-10-08 12:00 | NUR ---
MS RN NOTE PER HE WILL SEE THE PT TOMORROW FOR CONSULT.
[2018-10-08 16:00] VITALS: BP 110/56
[2018-10-08] MEDS: ACETAMINOPHEN 325 MG TABLET PO PRN (17:13)
[2018-10-08] MEDS: BENZTROPINE MESYLATE (1 MG) 1 MG TABLET PO SCH (17:13)
[2018-10-08] MEDS: LEVOFLOXACIN 500 MG /D5W 100ML 500 MG in PREMIX 1 EA IV SCH (17:13)
--- NOTE | 2018-10-08 18:27 | NUR ---
MS RN CLOSING NOTE PT IN BED, ALERT AND ORIENTED X4. DENIES CHEST PAIN, SOB, N/V, BREATHING IS EVEN AND UNLABORED ON ROOM AIR. NO ACUTE DISTRESS NOTED AT THIS TIME. RIGHT FA #22G IS PATENT, CLEAN, DRY AND INTACT. ADLS AND WOUND CARE PROVIDED ORDERED AND PT ASSISTED TO TURN AND REPOSITION Q2H FOR THE DURATION OF THE SHIFT. ALL NEEDS ATTENDED TO. BED IS LOCKED AND IN LOWEST POSITION, SIDE RAILS UP X2, BED ALARM ON, CALL LIGHT AND POSSESSIONS WITHIN REACH. WILL ENDORSE TO VOCATIONAL TEACHER NURSE FOR CONTINUITY OF CARE.
--- NOTE | 2018-10-08 19:46 | NUR ---
RN MS OPENING NOTES RECEIVED PT IN BED, AWAKE ALERT ORIENTEDX3-4, BREATHING EVEN AND UNLABORED ROOM AIR, NO COUGH OR CONGESTION OR SOB NOTED. NO COMPLAINT OF PAIN OR DISCOMFORT AT THIS TIME. IV ACCESS ON THE R FA 22G SL PATENT AND FLUSHING. BED IN LOWEST LOCKED POSITION, CALL LIGHT WITHIN REACH AT ALL TIME, WILL CONTINUE TO MONITOR FREQUENTLY
[2018-10-09 06:07] VITALS: BP 104/57
--- NOTE | 2018-10-09 06:10 | NUR ---
RN CLOSING NOTES PT REMAINS IN BED, AWAKE ALERT ORIENTEDX3-4, BREATHING EVEN AND UNLABORED ROOM AIR, NO COUGH OR CONGESTION OR SOB NOTED. NO COMPLAINT OF PAIN OR DISCOMFORT AT THIS TIME. IV ACCESS ON THE R FA 22G SL PATENT AND FLUSHING. DRESSING ON L FOOT CHANGED, REMAINS CLEAN AND DRY. OUTPUT OF 1700ML. NO CHANGE IN CONDITION DURING SHIFT. BED IN LOWEST LOCKED POSITION, CALL LIGHT WITHIN REACH AT ALL TIME, WILL ENDORSE TO DAY SHIFT FOR GABRIELE
[2018-10-09 06:30] LABS: BASOPHILS % (AUTO) 0.5 % (0.0-2.0); EOSINOPHILS % (AUTO) 2.4 % (0.0-6.0); HEMATOCRIT 27 % (39-51); HEMOGLOBIN 8.9 g/dL (13.5-17.5); LYMPHOCYTES % (AUTO) 13.9 % (20.0-44.0); MEAN CORPUSCULAR HGB CONC 34 g/dl (31.0-36.0); MEAN CORPUSCULAR VOLUME 81 fL (80-96); MONOCYTES # (AUTO) 0.4 /CMM (0.1-1.30); MONOCYTES % (AUTO) 5.1 % (2.0-12.0); NEUTROPHILS # (AUTO) 5.8 /CMM (1.8-8.9); NEUTROPHILS % (AUTO) 78.1 % (43.0-81.0); PLATELET COUNT (AUTO) 491 /CMM (150-450); RED BLOOD CELL COUNT(AUTO) 3.26 MIL/uL (4.5-6.0); WHITE BLOOD COUNT (AUTO) 7.4 K/uL (4.3-11.0)
[2018-10-09 07:23] LABS: CALCIUM, SERUM 8.8 mg/dL (8.5-10.1); CREATININE 1.1 mg/dL (0.6-1.3); PHOSPHORUS 3.9 mg/dL (2.5-4.9)
[2018-10-09 08:00] VITALS: BP 133/78
[2018-10-09] MEDS: LACTOBACILLUS RHAMNOSUS GG 1 EACH CAP.SPRINK PO SCH ×2 (08:31→16:25)
[2018-10-09] MEDS: risperiDONE 1 MG TABLET PO SCH ×2 (08:31→16:25)
[2018-10-09] MEDS: VANCOMYCIN 1 GM in IV D5W 250 ML IV SCH ×2 (08:31→21:23)
[2018-10-09] MEDS ORDERED: LEVO750T46 PO (11:36)
[2018-10-09] MEDS ORDERED: MAGN400O6 PO (11:36)
[2018-10-09] MEDS ORDERED: ACET325T53 PO (11:36)
[2018-10-09] MEDS ORDERED: ZOLP5TAB2 PO (11:36)
[2018-10-09] MEDS ORDERED: HYDR-3972 PO (11:36)
[2018-10-09] MEDS ORDERED: BENZ1TAB7 PO (11:36)
[2018-10-09] MEDS ORDERED: AMOX-430 PO (11:36)
[2018-10-09] MEDS ORDERED: MAG30ORA PO (11:36)
[2018-10-09 16:00] VITALS: BP 144/96
[2018-10-09] MEDS: DIVALPROEX SODIUM 250 MG TABLET.DR PO SCH (16:25)
[2018-10-09] MEDS: BENZTROPINE MESYLATE (1 MG) 1 MG TABLET PO SCH (16:25)
[2018-10-09] MEDS: LEVOFLOXACIN 500 MG /D5W 100ML 500 MG in PREMIX 1 EA IV SCH (18:15)
[2018-10-09] MEDS: HYDROCODONE/APAP 5/325MG 1 EACH TABLET PO PRN (18:24)
--- NOTE | 2018-10-09 18:47 | NUR ---
MS/RN CLOSING NOTE THE PATIENT ALERT AND ORIENTED X3. IN ROOM AIR AND SATURATION IS AT 99%. DENIES SOB. RESPIRATION REGULAR AND UNLABORED. DENIES PAIN AT THIS TIME. RFA G 22 PATENT AND IV ANTIBIOTIC INFUSING PER ORDER AND NO S/S INFILTRATION NOTED. BED LOW AND LOCKED. SIDE RAILS UP X3. CALL LIGHT WITHIN REACH. WILL ENDORSE TO TELEGRAPH SERVICE RATER.
--- NOTE | 2018-10-09 20:05 | NUR ---
RN MS OPENING NOTES RECEIVED PT IN BED, AWAKE ALERT ORIENTEDX3-4, BREATHING EVEN AND UNLABORED ROOM AIR, NO COUGH OR CONGESTION OR SOB NOTED. NO COMPLAINT OF PAIN OR DISCOMFORT AT THIS TIME L FOOT ELEVATED. IV ACCESS ON THE R FA 22G SL PATENT AND FLUSHING. BED IN LOWEST LOCKED POSITION, CALL LIGHT WITHIN REACH AT ALL TIME, WILL CONTINUE TO MONITOR FREQUENTLY
--- NOTE | 2018-10-10 06:10 | NUR ---
RN CLOSING NOTES PT REMAINS IN BED, AWAKE ALERT ORIENTEDX3-4, BREATHING EVEN AND UNLABORED ROOM AIR, NO COUGH OR CONGESTION OR SOB NOTED. NO COMPLAINT OF PAIN OR DISCOMFORT AT THIS TIME. IV ACCESS ON THE R FA 22G SL PATENT AND FLUSHING. DRESSING ON L FOOT , REMAINS CLEAN AND DRY. NO CHANGE IN CONDITION DURING SHIFT. BED IN LOWEST LOCKED POSITION, CALL LIGHT WITHIN REACH AT ALL TIME, WILL ENDORSE TO DAY SHIFT FOR GABRIELE
--- NOTE | 2018-10-10 07:30 | NUR ---
MS/RN OPENING NOTE THE PATIENT ALERT AND ORIENTED X3. IN ROOM AIR AND DENIES SOB. RESPIRATION REGULAR AND UNLABORED. DENIES PAIN. RFA G 22 PATENT AND SALINE LOCKED. BED LOW AND LOCKED. SIDE RAILS UP X3. CALL LIGHT WITHIN REACH. WILL CONTINUE TO MONITOR.
[2018-10-10 08:00] VITALS: BP 128/79
[2018-10-10 08:04] LABS: CREATININE 1.1 mg/dL (0.6-1.3); POTASSIUM 4.3 mmol/L (3.5-5.1)
[2018-10-10] MEDS: LACTOBACILLUS RHAMNOSUS GG 1 EACH CAP.SPRINK PO SCH ×2 (08:24→16:44)
[2018-10-10] MEDS: risperiDONE 1 MG TABLET PO SCH (08:24)
[2018-10-10] MEDS: DIVALPROEX SODIUM 250 MG TABLET.DR PO SCH ×3 (08:25→17:00)
[2018-10-10] MEDS: VANCOMYCIN 1 GM in IV D5W 250 ML IV SCH (09:00)
--- NOTE | 2018-10-10 10:40 | NUR ---
MS/RN NOTE PER DR GAGE THE PATIENT NEEDS TO BE SEEN BY CRISIS TEAM FOR EVALUATION TO PSYCH UNIT. LELO CHARGE NURSE IS MADE AWARE. GARRETT Lizarraga FROM ADMITTING IS MADE AWARE.
--- NOTE | 2018-10-10 11:30 | NUR ---
MS/RN NOTE THE PATIENT IS SEEN BY DR CASTRO. RECEIVED ORDER FROM DR CASTRO TO DISCONTINUE RISPERDAL 1 MG BID AND START NEW ORDER FOR RISPERDAL 1 MG TID. THE ORDERS ARE READ BACK, VERIFIED. NOTED AND CARRIED OUT.
[2018-10-10] MEDS ORDERED: risperiDONE 1 MG TABLET PO SCH ×2 (13:00→20:00)
[2018-10-10] MEDS: HYDROCODONE/APAP 5/325MG 1 EACH TABLET PO PRN (13:30)
[2018-10-10] MEDS ORDERED: DAKINS HALF STRENGTH (0.25%) 480 ML BOTTLE TOP SCH (15:30)
[2018-10-10 16:00] VITALS: BP 98/58
--- NOTE | 2018-10-10 16:23 | NUR ---
MS/RN NOTE PER DR GAGE DIET ORDER IS CHANGED TO LOW-CARB 60 GM. NOTED AND CARRIED OUT.
[2018-10-10] MEDS: BENZTROPINE MESYLATE (1 MG) 1 MG TABLET PO SCH (16:44)
--- NOTE | 2018-10-10 17:14 | NUR ---
MS/RN NOTE THE PATIENT ALERT AND ORIENTED X3. IN ROOM AIR AND SATURATION IS AT 97%. DENIES SOB. RESPIRATION REGULAR AND UNLABORED. DENIES PAIN. THE PATIENT IN NO APPARENT DISTRESS. WOUND DRESSING DONE PER ORDER AND THE PATIENT TOLERATED IT WELL. DISCHARGE EDUCATION PROVIDED. PATIENT IS TRANSFERRED TO GPS UNIT BY NURSE. THE PATIENT LEFT MS2 UNIT IN STABLE CONDITION.
[2018-10-10] MEDS ORDERED: AMOX-430 PO (17:39)
[2018-10-10] MEDS ORDERED: LEVO750T46 PO (17:39)
[2018-10-10] MEDS ORDERED: BENZ0.5T43 PO (17:56)
[2018-10-10] MEDS ORDERED: ZOLP5TAB2 PO (17:56)
[2018-10-10] MEDS ORDERED: MAG-55 PO (17:56)
[2018-10-10] MEDS ORDERED: MAGN400O6 PO (17:56)
[2018-10-10] MEDS ORDERED: TYL2T PO (17:56)
[2018-10-10] MEDS ORDERED: HYDR-3972 PO (17:56)
[2018-10-10] MEDS ORDERED: VANCOMYCIN 1 GM in IV D5W 250 ML IV SCH (21:00)
== END 2018-10-10 17:30 | DRG 623 ==
LOC: ER 14:25 → MEDSG2 16:36
PROVIDERS: ADMIT Student in an Organized Health Care Education/Training Program; ATTEND Student in an Organized Health Care Education/Training Program
PROC: 0JBR0ZZ Excision of Left Foot Subcutaneous Tissue and Fascia, Open Approach (ICD-10-PCS; principal; 2018-10-09)
DX: E11.621 Type 2 diabetes mellitus with foot ulcer (principal); L03.116 Cellulitis of left lower limb; M86.9 Osteomyelitis, unspecified; Z68.1 Body mass index [BMI] 19.9 or less, adult; E87.1 Hypo-osmolality and hyponatremia; E44.0 Moderate protein-calorie malnutrition; E11.69 Type 2 diabetes mellitus with other specified complication; K21.9 Gastro-esophageal reflux disease without esophagitis; F25.0 Schizoaffective disorder, bipolar type; Z91.14 Patient's other noncompliance with medication regimen; R62.7 Adult failure to thrive; D64.9 Anemia, unspecified; D47.3 Essential (hemorrhagic) thrombocythemia; I10 Essential (primary) hypertension; E11.65 Type 2 diabetes mellitus with hyperglycemia; E11.42 Type 2 diabetes mellitus with diabetic polyneuropathy; L97.529 Non-pressure chronic ulcer of other part of left foot with unspecified severity
CPT/HCPCS: 36415; 80048-TC; 80076-TC; 80202-TC; 80305; 83735-TC; 84100-TC; 85025-TC; 87081-TC; 97110-TC; 97116-TC; 97530-TC; A4216; A6403; A6407; G0378; J1956; J3370; J7050; J7060

== ENCOUNTER 2018-10-10 15:40 | Inpatient (IN) | payer MEDICARE, MEDICAID ==
[~2018-10-10] VITALS: Ht 172.7 cm; Wt 57.7 kg
[~2018-10-10 15:40] MED LIST changes: +ACET325T53 PO; +AMOX-430 PO; +AMOX875T2 PO; +BENZ1TAB7 PO; +HYDR-3972 PO; +LEVO750T46 PO; +MAG30ORA PO; +MAGN400O6 PO; +ZOLP5TAB2 PO
--- NOTE | 2018-10-10 17:15 | NUR ---
ADMISSION NURSING NOTE: PT WAS ADMITTED TODAY AT 1715 FROM MED SURG 2. PT WAS ESCORTED TO GPS VIA WHEELCHAIR BY 2 CNAS. PT IS ON A 5150 GD. PER HOLD, "PSYCH EVALUATION REQUESTED FOR THIS 48Y/O MALE WHO IS CURRENTLY ON MED-SURGICAL UNIT 208-1 AFTER BEING TREATED FOR OSTEOMYELITIS/CELLULITIS. HE HAS ALSO BEEN HAVING MOOD SWINGS AND HE HAS A LONG HISTORY OF MENTAL HEALTH ISSUES. WHEN INTERVIEW FACE TO FACE, CLAUDY WAS IRRITABLE AND MUMBLING, HE STATED "I AM NOT GOING BACK TO THE [facility] I DID NOT LIKE IT THERE AND I AM GOING HOME". PT CURRENTLY HAS NO PLACE TO GO. HIS MOTHER SILVA REPORTS THAT CLAUDY DOES NOT SHOWER, HE CANNOT TAKE CARE OF HIMSELF AND THE [facility] WHERE HE HAS BEEN LIVING NOTIFIED HER THAT HE CANNOT RETURN THERE. SHE ALSO REPORTS THAT SHE CANNOT MANAGE HIM AT HOME AND HE DOES NOT HAVE A SAFE PLAN OF CARE IF DISCHARGED TODAY." PT IS A&OX2, CONFUSED AND IRRITABLE AT TIMES, UNCOOPERATIVE, DEMANDING, REFUSING SKIN ASSESSMENT AND PHOTOS TO BE TAKEN, STATING "I'M NOT SIGNING ANYTHING UNTIL I SEE DR. PIERSON." PT DENIES SI/HI/AVH AT THIS TIME. PT STATES "I DON'T KNOW WHY THEY BROUGHT ME HERE, I WANT TO GO HOME." PT HAS WOUNDS TO HIS LEFT FOOT AND HEEL, DRYNESS TO THE BACK OF HIS LEFT FOOT, WOUND TO HIS LEFT SIN, THERE IS A DRESSING DONE TO HIS LEFT FOOT BY TRANSFER RN JOSE MIGUEL AND PER JOSE MIGUEL DO NOT REMOVE DRESSING UNTIL WOUND RN SEES PT TOMORROW. PT HAS RIGHT GREAT TOE PARTIAL AMPUTATION, LEFT SIDE OF FOOT WOUND THAT HEALING, RIGHT SIDE OF RIGHT FOOT HAS A SCAB, SCAB TO LEFT EAR. PT REFUSED SKIN ASSESSMENT AND PHOTOS FOR GPS. DR CASTRO HAS BEEN NOTIFIED OF THE ADMISSION AND ADMISSION ORDERS WERE GIVEN. DR. GAGE HAS BEEN NOTIFIED OF THE ADMISSION AND ADMISSION ORDERS WERE GIVEN WELL AND MED RECON HAS BEEN DONE. NO S/S OF ANY DISTRESS NOTED. NO C/O PAIN OR ANY DISCOMFORT. VS:135/92, 90, 18, 100%RA, 98.0, 0/10 PAIN. WILL CONTINUE TO MONITOR FOR SAFETY AND BEHAVIOR.
[2018-10-10] MEDS ORDERED: LEVO750T46 PO (17:39)
[2018-10-10] MEDS ORDERED: AMOX-430 PO (17:39)
[2018-10-10] MEDS ORDERED: HYDR-3972 PO (17:56)
[2018-10-10] MEDS ORDERED: BENZ0.5T43 PO (17:56)
[2018-10-10] MEDS ORDERED: TYL2T PO (17:56)
[2018-10-10] MEDS ORDERED: MAGN400O6 PO (17:56)
[2018-10-10] MEDS ORDERED: ZOLP5TAB2 PO (17:56)
[2018-10-10] MEDS ORDERED: MAG-55 PO (17:56)
[2018-10-10 18:24] VITALS: BP 135/92
[2018-10-10] MEDS ORDERED: ZOLPIDEM TARTRATE 5 MG TABLET PO PRN (18:30)
[2018-10-10] MEDS ORDERED: BENZTROPINE MESYLATE (1 MG) 1 MG TABLET PO SCH (18:30)
[2018-10-10] MEDS ORDERED: TEMAZEPAM 7.5 MG CAPSULE PO PRN (18:30)
[2018-10-10] MEDS ORDERED: LORAZEPAM 0.5 MG TABLET PO PRN (18:30)
[2018-10-10] MEDS ORDERED: MAG HYDROX/AL HYDROX/SIMETH 30 ML UDC PO PRN ×2 (18:30)
[2018-10-10] MEDS ORDERED: LACTOBACILLUS RHAMNOSUS GG 1 EACH CAP.SPRINK PO SCH (18:30)
[2018-10-10] MEDS ORDERED: ACETAMINOPHEN 325 MG TABLET PO PRN (18:30)
[2018-10-10] MEDS ORDERED: MAGNESIUM HYDROXIDE 30 ML UDC PO PRN ×2 (18:30)
[2018-10-10] MEDS: AMOX/CLAVULANATE 875 MG TABLET PO SCH (19:29)
[2018-10-10] MEDS: LEVOFLOXACIN (500MG) 500 MG TABLET PO SCH (19:29)
[2018-10-10 20:17] VITALS: BP 113/73
[2018-10-11] MEDS: HYDROCODONE/APAP 5/325MG 1 EACH TABLET PO PRN ×2 (01:38→08:26)
[2018-10-11] MEDS: ACETAMINOPHEN 325 MG TABLET PO PRN (05:18)
[2018-10-11 07:47] LABS: ALBUMIN 2.5 g/dL (3.4-5.0); BILIRUBIN,TOTAL 0.5 mg/dL (0.2-1.0); CALCIUM, SERUM 8.8 mg/dL (8.5-10.1); CHOLESTEROL 112 mg/dL (<200); CREATININE 1.3 mg/dL (0.6-1.3); HDL CHOLESTEROL 29 mg/dL (40-60); LDL 78 mg/dL (0-99); POTASSIUM 4.4 mmol/L (3.5-5.1); TOTAL PROTEIN, SERUM 7.7 g/dL (6.4-8.2); TRIGLYCERIDES 57 mg/dL (30-150)
[2018-10-11 08:00] VITALS: BP 110/66
[2018-10-11] MEDS: LACTOBACILLUS RHAMNOSUS GG 1 EACH CAP.SPRINK PO SCH (08:26)
[2018-10-11] MEDS: MULTIVIT W/MINERALS 1 TAB TABLET PO SCH (08:26)
[2018-10-11] MEDS: AMOX/CLAVULANATE 875 MG TABLET PO SCH ×2 (08:26→16:46)
[2018-10-11] MEDS: DAKINS QUARTER STRENGTH (0.125%) 480 ML BOTTLE TOP SCH (09:23)
--- NOTE | 2018-10-11 09:40 | NUR ---
WOUND CARE CONSULT: PT PRESENTS WITH RT LATERAL FOOT ESCHAR AND RT HALLUX AMPUTATION SCAR (THICKENED), LEFT MEDIAL AND LATERAL FOOT WOUNDS WELL LEFT HEEL WOUND WITH 6CM UNDERMINING AT 12:00, PRESENT ON ADMISSION. DR DARLING FOLLOWING PT FOR FOOT WOUNDS. DISCUSSED WOUND CARE AND DEMONSTRATED FOR NURSING STAFF. RECOMMENDATIONS MADE FOR SKIN PROTECTION. DISCUSSED WITH NURSING STAFF. PT WAS COOPERATIVE WITH DRESSING CHANGE. WILL SEE PRN. BRAY IN AGREEMENT WITH PLAN OF CARE. Addendum: 10/11/18 at 0945 by GUILLERMINA PEPPER WNDNU Amended: Links added.
--- NOTE | 2018-10-11 10:18 | NUR ---
SW contacted pts mother Lashawn [phone] for collateral information and discharge planning. Lashawn informed SW that pts board and child day care center worker Giovani [phone] informed her that he will not be taking back as pt is not complaint with self-grooming. Pts mother expressed feeling angry due to the fact that she has already paid first month and last month rent and stated she will be taking seed cleaning manager to court and dennys him for fraud as she informed SW that this is the third time the seed cleaning manager has taken pt to the hospital since pt moved in in April. Mother stated that pt currently needs placement and would like pt to be discharged to a SNF in [place] or in [place]. SW discussed pts treatment plan and estimated length of stay, pts mother agreed with treatment and SW will discuss SNF options in the areas of her preference.
[2018-10-11] MEDS: DIVALPROEX SODIUM 250 MG TABLET.DR PO SCH ×3 (13:00→20:00)
[2018-10-11] MEDS: BENZTROPINE MESYLATE (1 MG) 1 MG TABLET PO SCH ×3 (13:00→16:46)
[2018-10-11] MEDS: risperiDONE 1 MG TABLET PO SCH ×3 (13:00→21:19)
[2018-10-11 16:00] VITALS: BP 139/78
[2018-10-11 20:14] VITALS: BP 130/69
[2018-10-11] MEDS: LEVOFLOXACIN (500MG) 500 MG TABLET PO SCH (20:21)
--- NOTE | 2018-10-11 21:19 | NUR ---
RN-NOTES: PATIENT REFUSED TO TAKE HIS SCHEDULED MEDS DEPAKOTE AND RISPERDAL FOR TONIGHT. DESPITE EXPLANATION THE RISKS AND BENEFITS. PATIENT STATED "I DON'T WANT TO TAKE ANY PSYCH MEDS ONLY ANTIBIOTICS FOR MY WOUNDS". PATIENT STRONGLY REFUSED.
[2018-10-11] MEDS ORDERED: DEXTROSE 50%-WATER 50 ML DISP.SYRIN IV PRN (22:30)
[2018-10-12] MEDS: ACETAMINOPHEN 325 MG TABLET PO PRN (06:07)
[2018-10-12 07:13] LABS: ALBUMIN 2.5 g/dL (3.4-5.0); CALCIUM, SERUM 8.9 mg/dL (8.5-10.1); CREATININE 1.3 mg/dL (0.6-1.3); MAGNESIUM 1.9 mg/dL (1.8-2.4); PHOSPHORUS 3.9 mg/dL (2.5-4.9); POTASSIUM 4.1 mmol/L (3.5-5.1)
[2018-10-12] MEDS: BLOOD SUGAR DIAGNOSTIC 1 EACH STRIP IN SCH ×4 (07:30→22:03)
--- NOTE | 2018-10-12 07:30 | NUR ---
Missed blood glucose check at 7:30 am. Patient ate breakfast already by nine am when television script writer available for medication and treatment. Patient given wound care and new dressing. Patient agrees with missing accucheck for blood glucose until 12 pm. Andrea David RN
[2018-10-12 08:00] VITALS: BP 127/73
[2018-10-12] MEDS: DIVALPROEX SODIUM 250 MG TABLET.DR PO SCH ×3 (08:00→20:00)
[2018-10-12] MEDS: risperiDONE 1 MG TABLET PO SCH ×3 (08:00→22:00)
[2018-10-12] MEDS: BENZTROPINE MESYLATE (1 MG) 1 MG TABLET PO SCH ×2 (09:00→16:21)
[2018-10-12] MEDS: AMOX/CLAVULANATE 875 MG TABLET PO SCH ×2 (09:19→16:20)
[2018-10-12] MEDS: LACTOBACILLUS RHAMNOSUS GG 1 EACH CAP.SPRINK PO SCH (09:20)
[2018-10-12] MEDS: MULTIVIT W/MINERALS 1 TAB TABLET PO SCH (09:20)
--- NOTE | 2018-10-12 09:39 | NUR ---
INITIAL DISCHARGE PLAN: Per pts mother Lashawn [phone] pt needs SNF placement as pt is unable to return to board and care he came from. SW will help form a safe and proper discharge in collaboration with .
--- NOTE | 2018-10-12 09:55 | NUR ---
Patient talking to self. Refuses medication bailey layne, bing, because he reports he has no need of psychiatric treatment and was going back to [facility] for care where he rents a place with roomates. He does know he needs help. Says his mom and dad are back together and have a private nurse that can help him in [facility]. He speaks in monologue for long periods and ends the dialogue in "hey this is Uri." Andrea David RN
[2018-10-12] MEDS: DAKINS QUARTER STRENGTH (0.125%) 480 ML BOTTLE TOP SCH (09:59)
[2018-10-12] MEDS: INSULIN REGULAR, HUMAN 100 UNIT/ML 3 ML VIAL SQ PRN ×2 (11:37→21:45)
--- NOTE | 2018-10-12 13:27 | NUR ---
Patient refuses medication. Attempt to take dose of medication for the noon time twice as he said something that made the auto service writer try again, "I am not refusing medication." His rationale is that he needs to talk to Doctor Rolanda first prior to taking his medication. Patient is talking to something not present in the room. Encouraged patient to take medication. Plan: will offer snack in exchange for medication compliance.
--- NOTE | 2018-10-12 15:56 | NUR ---
Patient says "I talked with Doctor Rolanda. I still need to talk to a psychologist. Doctor Rolanda did not understand me. Do you know if he is coming. I will ask the other Doctor when he comes (FREEDOM Moreno)." Patient asked what time it was. Notified it was 3 pm. Patient verbalizes understanding and said, "That is it. I just wanted to tell you that."
[2018-10-12 16:00] VITALS: BP 118/68
[2018-10-12] MEDS: LEVOFLOXACIN (500MG) 500 MG TABLET PO SCH (19:48)
[2018-10-12] MEDS: HYDROCODONE/APAP 5/325MG 1 EACH TABLET PO PRN (19:48)
--- NOTE | 2018-10-12 19:52 | NUR ---
GPS/RN PATIENT REFUSED DEPAKOTE STATING THAT "DR. CASTRO IS NOT CLEAR ON THAT".
[2018-10-12 20:00] VITALS: BP 113/76
[2018-10-13] MEDS: ACETAMINOPHEN 325 MG TABLET PO PRN ×2 (06:06→10:49)
[2018-10-13] MEDS: BLOOD SUGAR DIAGNOSTIC 1 EACH STRIP IN SCH ×4 (07:30→21:31)
[2018-10-13 08:00] VITALS: BP 115/69
[2018-10-13] MEDS: DIVALPROEX SODIUM 250 MG TABLET.DR PO SCH ×3 (08:00→20:00)
[2018-10-13] MEDS: risperiDONE 1 MG TABLET PO SCH ×3 (08:00→21:08)
[2018-10-13] MEDS: AMOX/CLAVULANATE 875 MG TABLET PO SCH ×2 (09:00→17:29)
[2018-10-13] MEDS: DAKINS QUARTER STRENGTH (0.125%) 480 ML BOTTLE TOP SCH (09:00)
[2018-10-13] MEDS: LACTOBACILLUS RHAMNOSUS GG 1 EACH CAP.SPRINK PO SCH (09:00)
[2018-10-13] MEDS: MULTIVIT W/MINERALS 1 TAB TABLET PO SCH (09:00)
[2018-10-13] MEDS: BENZTROPINE MESYLATE (1 MG) 1 MG TABLET PO SCH ×2 (09:00→17:52)
[2018-10-13] MEDS: INSULIN REGULAR, HUMAN 100 UNIT/ML 3 ML VIAL SQ PRN ×2 (11:40→21:41)
--- NOTE | 2018-10-13 11:50 | NUR ---
GROUP NOTE: SW encouraged pt to attend group on 10/13/18 at 1000 to discuss the topic of discharge planning, pt refused to attend stating he did not want to be around other people.
--- NOTE | 2018-10-13 12:08 | NUR ---
JOE faxed SNF referral to Leila, lifestyle coordinator at [facility] Address: [address] [place] [address] for review.
--- NOTE | 2018-10-13 15:59 | NUR ---
Patient refused all his medication. The only medication he took is only insulin injection. Wound care was done and wound pictures were taken as well.
[2018-10-13 16:14] VITALS: BP 152/86
[2018-10-13] MEDS: GLUCERNA SHAKE 237 ML CAN PO SCH (17:35)
[2018-10-13 20:00] VITALS: BP 121/69
[2018-10-13] MEDS: LEVOFLOXACIN (500MG) 500 MG TABLET PO SCH (20:47)
--- NOTE | 2018-10-13 21:09 | NUR ---
RN-NOTES: PATIENT REFUSED TO TAKE HIS SCHEDULED MEDS DEPAKOTE AND RISPERDAL FOR TONIGHT. ATTEMPTED X3, DESPITE EXPLANATION THE RISK AND BENEFITS. PATIENT STATED "I DON'T WANT TO TAKE ANY PSYCH MEDS, JUST ANTIBIOTICS ONLY". PATIENT STILL REFUSED.
[2018-10-14] MEDS: ACETAMINOPHEN 325 MG TABLET PO PRN (03:47)
[2018-10-14] MEDS: HYDROCODONE/APAP 5/325MG 1 EACH TABLET PO PRN (06:32)
[2018-10-14] MEDS: BLOOD SUGAR DIAGNOSTIC 1 EACH STRIP IN SCH ×2 (07:31→12:01)
[2018-10-14 08:00] VITALS: BP 141/87
[2018-10-14] MEDS: risperiDONE 1 MG TABLET PO SCH (08:00)
[2018-10-14] MEDS: DIVALPROEX SODIUM 250 MG TABLET.DR PO SCH (08:00)
[2018-10-14] MEDS: GLUCERNA SHAKE 237 ML CAN PO SCH (08:17)
[2018-10-14] MEDS: AMOX/CLAVULANATE 875 MG TABLET PO SCH (08:17)
[2018-10-14] MEDS: MULTIVIT W/MINERALS 1 TAB TABLET PO SCH (08:18)
[2018-10-14] MEDS: LACTOBACILLUS RHAMNOSUS GG 1 EACH CAP.SPRINK PO SCH (08:18)
[2018-10-14] MEDS: BENZTROPINE MESYLATE (1 MG) 1 MG TABLET PO SCH (08:18)
--- NOTE | 2018-10-14 08:56 | NUR ---
GPS/RN-NOTES PATIENT REFUSED DEPAKOTE 250MG P.O AND RISPERDAL 1MG P.O . STATED" I DON'T NEED THOSE MEDICATIONS AND THE PSYCHIATRIST ALREADY KNOW THAT". OFFERED X3.
--- NOTE | 2018-10-14 09:04 | NUR ---
DR. CASTRO GAVE AN ORDER TO D/C HOLD AND D/C TO THE [facility] AND TO FOLLOW UP WITH PSYCH AND MEDICAL DOCTORS. CALLED THE FACILITY AND SPOKE TO CHANTAL AND SAID THEY ARE ACCEPTING THE PT. TODAY AND SILVA ARREOLA (MOTHER) MADE AWARE.
--- NOTE | 2018-10-14 09:35 | NUR ---
GPS/RN-NOTES DID WOUND TREATMENT ON THE LEFT LEG ORDERED.
[2018-10-14] MEDS: DAKINS QUARTER STRENGTH (0.125%) 480 ML BOTTLE TOP SCH (09:47)
[2018-10-14] MEDS: INSULIN REGULAR, HUMAN 100 UNIT/ML 3 ML VIAL SQ PRN (12:02)
--- NOTE | 2018-10-14 12:26 | NUR ---
GPS/RN-NOTES PATENT DISCHARGE TODAY TO [facility]. DR. CASTRO AND CELESTINA PIERSON AWARE AND AGREES WITH ORDERS. REPORT WAS GIVEN TO CHANTAL ( FACILITY PRODUCT AMBASSADOR).ALL DISCHARGE MEDICATIONS WAS REVIEWED WITH THE PATIENT WITH UNDERSTANDING. PATIENT DID NOT VERBALIZE SI/HI,DENIES VISUAL AUDITORY HALLUCINATIONS AT THE TIME OF DISCHARGE. PATIENT REFUSED TO SIGN ALL DISCHARGE PAPERS INCLUDING BELONGING LIST. PATIENT'S MOTHER MAXWELL ASCENCIO WAS MADE AWARE OF THE DISCHARGE. PATIENT LEFT THE UNIT IN STABLE CONDITION ALERT ORIENTED X3 , LEFT WITH ALL BELONGINGS INCLUDING VENTURA MONEY OF $60.00 WAS COUNTED AND GIVEN TO THE PATIENT WITNESS BY THE AMBULANCE STAFF . PATIENT LEFT BY AMBULANCE VIA GURNEY WITH TWO STAFF ASSIST.
--- NOTE | 2018-10-16 16:06 | NUR ---
Discharge Note: Pt was discharged to [facility] located at [address] [place] [address]; ([phone]). Pt was transported via [facility] at 11AM. Upon discharge, the nurse stated that the pt denied both suicidal and homicidal ideation as well as auditory and visual hallucinations. Pt will be under the care of his psychiatrist, Dr. Orantes, located at [address], [place] [address]; . Pt will also be under the care of his underground miner, Dr. Enamorado, located at [address], [place] [address]; .
== END 2018-10-14 12:25 | DRG 885 ==
LOC: GPS 15:40
PROVIDERS: ADMIT Psychiatry & Neurology Psychosomatic Medicine; ATTEND Hospitalist
DX: F25.0 Schizoaffective disorder, bipolar type (principal); E43 Unspecified severe protein-calorie malnutrition; M86.9 Osteomyelitis, unspecified; E11.65 Type 2 diabetes mellitus with hyperglycemia; Z68.1 Body mass index [BMI] 19.9 or less, adult; F29 Unspecified psychosis not due to a substance or known physiological condition; I10 Essential (primary) hypertension; K21.9 Gastro-esophageal reflux disease without esophagitis; E11.621 Type 2 diabetes mellitus with foot ulcer; E11.42 Type 2 diabetes mellitus with diabetic polyneuropathy; E11.69 Type 2 diabetes mellitus with other specified complication; D64.9 Anemia, unspecified; Z91.14 Patient's other noncompliance with medication regimen; R62.7 Adult failure to thrive; L97.529 Non-pressure chronic ulcer of other part of left foot with unspecified severity
CPT/HCPCS: 36415; 80048-TC; 80053-TC; 80061-TC; 82040-TC; 82962-TC; 83735-TC; 84100-TC; 87081-TC; 97110-TC; 97116-TC; 97530-TC; J1815

== ENCOUNTER 2020-04-14 16:57 | Inpatient (IN) | payer MEDICARE, OTHER ==
[~2020-04-14] VITALS: Ht 170.2 cm; Wt 59.0 kg
[~2020-04-14 16:57] MED LIST changes: -ACET325T53 PO; -AMOX875T2 PO; +BENZ0.5T43 PO; -BENZ1TAB7 PO; +MAG-55 PO; -MAG30ORA PO; +MULT-754 PO; -MULT1TAB73 PO; +TYL2T PO
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
[2020-04-14 20:00] VITALS: BP 151/83
[2020-04-14] MEDS ORDERED: ACETAMINOPHEN 325 MG TABLET PO PRN (20:30)
[2020-04-14] MEDS ORDERED: MAG HYDROX/AL HYDROX/SIMETH 30 ML UDC PO PRN ×2 (20:30→21:00)
[2020-04-14] MEDS ORDERED: HYDROCODONE/APAP 5/325MG TABLET PO PRN (20:30)
[2020-04-14] MEDS ORDERED: MAGNESIUM HYDROXIDE 30 ML UDC PO PRN ×2 (20:30→21:00)
[2020-04-14] MEDS ORDERED: clonazePAM 0.5 MG TABLET PO PRN (21:00)
[2020-04-14] MEDS ORDERED: TEMAZEPAM 7.5 MG CAPSULE PO PRN (21:00)
[2020-04-14] MEDS ORDERED: BLOOD SUGAR DIAGNOSTIC 1 EACH STRIP IN ONE (21:30)
--- NOTE | 2020-04-15 06:09 | NUR ---
GPS-RN NOTE: PATIENT STILL REFUSING TO HAVE HIS LEGS/FEET CHECK. UNABLE TO SEE THE WOUND VISUALLY, PATIENT COVERED WITH BLANKET. PATIENT STATED "I HAVE TO SEE MY DOCTOR FIRST" EXPLAINED RISKS VS BENEFITS, BUT STILL PATIENT CONTINUED TO REFUSE. WILL ENDORSE TO AM NURSE FOR CONTINUITY OF CARE. AND PATIENT ALSO REFUSED MRSA SWAB.
--- NOTE | 2020-04-15 06:21 | NUR ---
GPS-RN NOTE: FAMILY NOTIFICATION UNABLE TO NOTIFY PATIENT'S MOTHER SILVA ARREOLA REGARDING PATIENT ADMISSION, BOTH PHONE NUMBERS PROVIDED ARE NOT WORKING , . WILL ENDORSE TO AM SHIFT FOR CONTINUITY OF CARE.
[2020-04-15 07:25] LABS: BASOPHILS % (AUTO) 0.5 % (0.0-2.0); HEMATOCRIT 28 % (39-51); HEMOGLOBIN 9.4 g/dL (13.5-17.5); LYMPHOCYTES # (AUTO) 1.6 /CMM (0.8-4.8); LYMPHOCYTES % (AUTO) 33.2 % (20.0-44.0); MEAN CORPUSCULAR HGB CONC 33 g/dl (31.0-36.0); MEAN CORPUSCULAR VOLUME 86 fL (80-96); MONOCYTES # (AUTO) 0.3 /CMM (0.1-1.30); MONOCYTES % (AUTO) 5.9 % (2.0-12.0); NEUTROPHILS # (AUTO) 2.6 /CMM (1.8-8.9); NEUTROPHILS % (AUTO) 55.4 % (43.0-81.0); PLATELET COUNT (AUTO) 414 /CMM (150-450); RED BLOOD CELL COUNT(AUTO) 3.25 MIL/uL (4.5-6.0); WHITE BLOOD COUNT (AUTO) 4.7 K/uL (4.3-11.0)
[2020-04-15 07:50] LABS: CREATININE 1.3 mg/dL (0.6-1.3); MAGNESIUM 2.1 mg/dL (1.8-2.4); PHOSPHORUS 3.5 mg/dL (2.5-4.9); POTASSIUM 3.9 mmol/L (3.5-5.1)
[2020-04-15] MEDS: GLUCERNA SHAKE 237 ML CAN PO SCH ×2 (08:00→16:05)
[2020-04-15] MEDS ORDERED: ENSURE ENLIVE CHOC 237 ML CAN PO SCH (08:00)
[2020-04-15 08:12] LABS: THYROID STIMULATING HORMONE 1.487 uIU/mL (0.358-3.74)
[2020-04-15] MEDS: ACIDOPHILUS/BULGARICUS 1 EACH TAB.CHEW PO SCH (09:00)
[2020-04-15] MEDS: MULTIVIT W/MINERALS 1 TAB TABLET PO SCH (09:00)
--- NOTE | 2020-04-15 09:00 | NUR ---
RN NOTE- PT IN BED, ECHOLALIA PRESENT, DISORGANIZED THOUGHTS, NON MED COMPLIANT, PO INTAKE GOOD, CISCO NETWORK ARCHITECT TO ASSESS FOOT ISSUES
[2020-04-15] MEDS: DIVALPROEX SODIUM 250 MG TABLET.DR PO SCH ×3 (09:30→16:35)
[2020-04-15] MEDS: risperiDONE 1 MG TABLET PO SCH ×2 (09:30→16:35)
[2020-04-15] MEDS: BENZTROPINE MESYLATE (1 MG) 1 MG TABLET PO SCH ×2 (09:30→16:35)
--- NOTE | 2020-04-15 09:51 | NUR ---
WOUND CARE CONSULT: PT PRESENTS WITH REDNESS/ULCERATION TO RT 5TH FINGER AND FOOT WOUNDS, PRESENT ON ADMISSION. TOENAILS NOTED TO BE VERY LONG. RECOMMEND SURGICAL AND DPM CONSULTS. DR AGUILERA AND DR DUDLEY NOTIFIED OF CONSULT REQUESTS. RECOMMENDATIONS MADE FOR SKIN PROTECTION. DISCUSSED WITH NURSING STAFF. MD IN AGREEMENT WITH PLAN OF CARE. Addendum: 04/15/20 at 0953 by GUILLERMINA PEPPER WNDNU Amended: Links added.
[2020-04-15] MEDS: Z GUARD REMEDY 2 OZ OINT TP SCH (09:58)
[2020-04-15] MEDS ORDERED: Z GUARD REMEDY 2 OZ OINT TP PRN (10:00)
--- NOTE | 2020-04-15 11:03 | NUR ---
RN NOTE- WOUND TO LEFT HEEL, CLEANSED W NS, COVERED W TELFA DRESSING AND WRAPPED W KERLIX GAUZE . AWAITING MD QUACH. COMBAT SYSTEMS OFFICER ASSESSED PT THIS MORNING
--- NOTE | 2020-04-15 13:00 | NUR ---
Initial Discharge Plan: Pt states that he lives in a home located at [address] [place] [address]. JOE does not have the accurate phone number for the pts mother to confirm if he can return. JOE will work with the pt and the pts MD regarding appropriate discharge planning. JOE will form a safe and proper discharge.
--- NOTE | 2020-04-15 13:24 | NUR ---
RN NOTE- WENT W SURGICAL ASSIST TO EVALUATE PT FOOT. PT COUGHING UP PHLEGM AND ANXIOUS. VS- B/P- 184/94, HR- 92, RR-20, TEMP- AFEBRILE 99% RA. . SAT PT UP, CLEANED AND ASSISTED. DR CANALES NOTIFIED. CXR? AWAITING ORDERS. PT CALMED, CHANGED CLOTHING AND LINENS. MONITORING
--- NOTE | 2020-04-15 13:38 | NUR ---
RN-CO: PAGED DR CANALES, MADE HIM AWARE THAT PT'S BP IS 184/94,99%,92,18,0/10, 97.9. HAS CHEST CONGESTION AND COUGH. AWAITING TO CALL BACK.
--- NOTE | 2020-04-15 13:58 | NUR ---
RN-CO: DR CANALES ORDERED CXR AND HYDRALAZINE 25 MG PO Q 6HR PRN FOR SBP > 165, NOTED AND CARRIED OUT.
--- NOTE | 2020-04-15 14:23 | NUR ---
RN NOTE- PT OPPOSITIONAL TO CARE AND MRSA SWAB COLLECTION. REFUSED
[2020-04-15] MEDS: hydrALAZINE HCL 25 MG TABLET PO PRN (15:42)
[2020-04-15 15:45] VITALS: BP 166/99
--- NOTE | 2020-04-15 15:51 | NUR ---
RN-CO: FF UP XRAY.
[2020-04-15 16:05] VITALS: BP 166/99
[2020-04-15 16:17] VITALS: BP 150/88
[2020-04-15] MEDS: ACETAMINOPHEN 325 MG TABLET PO PRN (19:55)
--- NOTE | 2020-04-15 19:55 | NUR ---
GPS RN NOTE: PAIN PATIENT C/O GENERALIZED BODY ACHE 07/02 & WANTED TO TAKE PAIN MEDICINE. PRN TYLENOL 650 MG PO GIVEN. WILL CONTINUE TO MONITOR FOR CHANGES.
[2020-04-15 20:30] VITALS: BP 123/79
--- NOTE | 2020-04-15 21:08 | NUR ---
GPS RN NOTE PATIENT ASKED TO GET A DIAPER, OFFERED ASSISTANCE TO THE PATIENT BUT PATIENT REFUSED TO GET HELP FROM THE NURSE & STATED," I CAN DO IT, I DON'T NEED HELP, JUST TELL ME WHERE TO LEAVE TO DIAPER AFTER CHANGING." DESPITE OF OFFERING HELP PATIENT CONTINUED TO REFUSE TO BE TOUCHED & REFUSED SKIN ASSESSMENT WELL.
--- NOTE | 2020-04-16 06:24 | NUR ---
GPS RN NOTE PATIENT WEARS A DIAPER & USES URINAL. OFFERED ADL CARE ASSISTANCE TO THE PATIENT BUT PATIENT REFUSED TO BE CHANGED AT THIS TIME & STATED," I AM CLEAN, I WILL CHANGE WHEN I NEED TO." PATIENT CHANGED EARLIER INDEPENDENTLY & REFUSED TO GET HELP FROM THE NURSE. EASILY AGITATED & ANXIOUS. WILL CONTINUE TO MONITOR.
[2020-04-16] MEDS: GLUCERNA SHAKE 237 ML CAN PO SCH ×2 (07:37→16:06)
[2020-04-16 08:00] VITALS: BP 152/85
[2020-04-16] MEDS: risperiDONE 1 MG TABLET PO SCH ×2 (08:09→16:11)
[2020-04-16] MEDS: ACIDOPHILUS/BULGARICUS 1 EACH TAB.CHEW PO SCH (08:09)
[2020-04-16] MEDS: DIVALPROEX SODIUM 250 MG TABLET.DR PO SCH ×3 (08:09→16:11)
[2020-04-16] MEDS: MULTIVIT W/MINERALS 1 TAB TABLET PO SCH (08:09)
[2020-04-16] MEDS: BENZTROPINE MESYLATE (1 MG) 1 MG TABLET PO SCH ×2 (08:09→16:11)
[2020-04-16] MEDS: THERAHONEY GEL 1.5 OZ TUBE TP SCH (08:10)
[2020-04-16] MEDS: Z GUARD REMEDY 2 OZ OINT TP SCH (08:29)
--- NOTE | 2020-04-16 09:09 | NUR ---
RN-CO: PT IS VERY POTTER, REFUSED HIS RISPERDAL, DEPAKOTE AND COGENTIN. HE STATED " THAT IS A MISTAKE, I NEED TO TALK TO PSYCHIATRIST!" PT HAS A PRESSURED SPEECH AND ANGRY AFFECT.
--- NOTE | 2020-04-16 09:49 | NUR ---
RN-CO: Patient is very angry, belligerent and refused his wound dressing.
--- NOTE | 2020-04-16 12:18 | NUR ---
RN-CO: PATIENT STILL UNCOOPERATIVE W/ MEDS. HE REFUSED DEPAKOTE FOR NOON.
--- NOTE | 2020-04-16 16:11 | NUR ---
RN-CO:Patient is angry when approach, refused Risperdal, Cogentin and Depakote. MD made aware.
[2020-04-16] MEDS: hydrALAZINE HCL 25 MG TABLET PO PRN (16:21)
--- NOTE | 2020-04-16 16:30 | NUR ---
RN-CO: HYDRALAZINE 25 MG PO GIVEN FOR BP OF 167/83.
--- NOTE | 2020-04-16 16:37 | NUR ---
RN-CO: DR HATCH MADE AWARE OF THE HOLD EXPIRING ON MIDNIGHT.
--- NOTE | 2020-04-17 06:56 | NUR ---
GPS RN PT REFUSED VITALS LAST NIGHT, TRIED AGAIN SHORTLY AFTER PT STILL REFUSED, ASKED THE PT THIS MORNING HOW HE WAS FEELING AND IF I WAS ABLE TO TAKE VITALS, PT REFUSED, LABILE, AGITATED, RESTLESS, WILL PASS IT ON TO UPCOMING SHIFT AND CONTINUE MONITOR Q15MIN FOR SAFETY AND BEHAVIOR.
[2020-04-17] MEDS: GLUCERNA SHAKE 237 ML CAN PO SCH ×2 (08:00→16:53)
[2020-04-17] MEDS: MULTIVIT W/MINERALS 1 TAB TABLET PO SCH (08:55)
[2020-04-17] MEDS: ACIDOPHILUS/BULGARICUS 1 EACH TAB.CHEW PO SCH (08:55)
[2020-04-17] MEDS: hydrALAZINE HCL 25 MG TABLET PO PRN ×2 (08:59→16:52)
--- NOTE | 2020-04-17 08:59 | NUR ---
rn notes administered Apresoline 25 mg po prn for bp 161/99, p-91. patient refused psych medication.
[2020-04-17] MEDS: DIVALPROEX SODIUM 250 MG TABLET.DR PO SCH ×3 (09:00→16:33)
[2020-04-17] MEDS: BENZTROPINE MESYLATE (1 MG) 1 MG TABLET PO SCH ×2 (09:00→16:33)
[2020-04-17] MEDS: risperiDONE 1 MG TABLET PO SCH ×2 (09:00→16:34)
[2020-04-17] MEDS: Z GUARD REMEDY 2 OZ OINT TP SCH (09:03)
[2020-04-17] MEDS: THERAHONEY GEL 1.5 OZ TUBE TP SCH (09:03)
--- NOTE | 2020-04-17 13:15 | NUR ---
Family Contact: SW has been unable to contact the pts family. The numbers listed are inaccurate.
[2020-04-17 16:41] VITALS: BP 151/87
[2020-04-17 20:00] VITALS: BP 145/83
[2020-04-18] MEDS: GLUCERNA SHAKE 237 ML CAN PO SCH ×2 (08:32→16:49)
[2020-04-18] MEDS: BENZTROPINE MESYLATE (1 MG) 1 MG TABLET PO SCH ×2 (08:32→16:48)
[2020-04-18] MEDS: ACIDOPHILUS/BULGARICUS 1 EACH TAB.CHEW PO SCH (08:32)
[2020-04-18] MEDS: DIVALPROEX SODIUM 250 MG TABLET.DR PO SCH ×3 (08:32→16:49)
[2020-04-18] MEDS: risperiDONE 1 MG TABLET PO SCH ×2 (08:32→16:49)
[2020-04-18] MEDS: Z GUARD REMEDY 2 OZ OINT TP SCH (08:33)
[2020-04-18] MEDS: THERAHONEY GEL 1.5 OZ TUBE TP SCH (08:33)
[2020-04-18] MEDS: MULTIVIT W/MINERALS 1 TAB TABLET PO SCH (08:33)
--- NOTE | 2020-04-18 09:00 | NUR ---
RN NOTE- PT CONTINUES TO REFUSE MEDICATIONS AND BE OPPOSITIONAL. PO INTAKE FAIR, WOUND CARE COMPLETED THOUGH PT REFUSING GROOMING SHOWER OR ADLS. MUMBLING TO SELF, ECHOLALIA PRESENT, RESPONDING TO INTERNAL STIMULUS. CONFUSED
[2020-04-18 14:56] VITALS: BP 136/77
[2020-04-18 16:00] VITALS: BP 136/77
[2020-04-18 21:07] VITALS: BP 124/67
[2020-04-19 08:00] VITALS: BP 156/98
[2020-04-19] MEDS: ACIDOPHILUS/BULGARICUS 1 EACH TAB.CHEW PO SCH (08:46)
[2020-04-19] MEDS: GLUCERNA SHAKE 237 ML CAN PO SCH ×2 (08:47→17:00)
[2020-04-19] MEDS: MULTIVIT W/MINERALS 1 TAB TABLET PO SCH (08:48)
[2020-04-19] MEDS: BENZTROPINE MESYLATE (1 MG) 1 MG TABLET PO SCH ×2 (08:49→17:00)
[2020-04-19] MEDS: DIVALPROEX SODIUM 250 MG TABLET.DR PO SCH ×3 (08:49→17:00)
[2020-04-19] MEDS: risperiDONE 1 MG TABLET PO SCH ×2 (08:49→17:00)
[2020-04-19] MEDS: Z GUARD REMEDY 2 OZ OINT TP SCH (08:54)
[2020-04-19] MEDS: THERAHONEY GEL 1.5 OZ TUBE TP SCH ×2 (09:00→10:11)
[2020-04-19 16:01] VITALS: BP 144/85
--- NOTE | 2020-04-19 19:30 | NUR ---
GPS RN NOTE, RECEIVED PATIENT AWAKE AND IN BED, HAS NO C/O OF PAIN AT THIS TIME. PATIENT IS DISPLAYING NO S/S OF APPARENT DISTRESS AT THIS TIME. PATIENT BREATHING IS UNLABORED WITH EQUAL RISE AND FALL OF THE CHEST. PATIENT IS ALERT AND ORIENTED X 3 ON ROOM AIR WITH A SPO2 98%. PATIENT IS REFUSING MEDICATIONS, HYPERVERBAL, ANXIOUS AT TIMES, EASILY IRRITABLE, AND COOPERATIVE. PATIENT DENIES SUICIDAL AND HOMICIDAL IDEATIONS AT THIS TIME. PATIENT ASSISTED WITH TURNING AND REPOSITIONING Q2HR AND PRN FOR COMFORT AND CIRCULATION. PATIENT HAS NO NEEDS AT THIS TIME. PATIENT EDUCATED ON THE USE OF THE CALL JOHN. PATIENT BED SIDE RAILS UP X 2 FOR SAFETY. PATIENT BED IS LOCKED, LOW, WITH BED ALARM ON. WILL CONTINUE TO MONITOR THIS PATIENT Q15 MINUTES WITH THE HELP OF STAFF TO MAINTAIN SAFETY.
[2020-04-19 20:00] VITALS: BP 158/99
[2020-04-20] MEDS: DIVALPROEX SODIUM 250 MG TABLET.DR PO SCH ×3 (08:21→16:11)
[2020-04-20] MEDS: risperiDONE 1 MG TABLET PO SCH ×2 (08:21→16:11)
[2020-04-20] MEDS: ACIDOPHILUS/BULGARICUS 1 EACH TAB.CHEW PO SCH (08:21)
[2020-04-20] MEDS: GLUCERNA SHAKE 237 ML CAN PO SCH ×2 (08:21→16:11)
[2020-04-20] MEDS: MULTIVIT W/MINERALS 1 TAB TABLET PO SCH (08:21)
[2020-04-20] MEDS: BENZTROPINE MESYLATE (1 MG) 1 MG TABLET PO SCH ×2 (08:21→16:12)
[2020-04-20] MEDS: THERAHONEY GEL 1.5 OZ TUBE TP SCH (08:22)
[2020-04-20] MEDS: Z GUARD REMEDY 2 OZ OINT TP SCH (08:22)
--- NOTE | 2020-04-20 12:15 | NUR ---
RN NOTE- WOUND CARE/ OLD DRESSING REMOVED FROM LEFT HEEL WOUND. + SERO-SANGUINOUS DRAINAGE, NO ODOR, NO PURULENCE. + ERYTHEMA AT EDGES, PINK GRANULATION TISSUE TO WOUND BED. WOUND HONEY APPLIED AFTER CLEANING AREA W NS, STERILE GAUZE APPLIED WRAPPED KERLIX TAPED SECURELY. TOLERATED WELL.
[2020-04-20 15:30] VITALS: BP 120/76
[2020-04-20 20:07] VITALS: BP 123/75
[2020-04-20 21:03] VITALS: BP 123/75
--- NOTE | 2020-04-20 21:40 | NUR ---
GPS RN NOTE: REFUSED SKIN ASSESSMENT PATIENT REFUSED SKIN ASSESSMENT X3 AT THIS TIME, EASILY AGITATED, ANXIOUS & REFUSED TO BE TOUCHED AT ALL. UNCOOPERATIVE. WILL TRY AGAIN TO ASSESS PATIENT'S SKIN LATER.
[2020-04-21 08:00] VITALS: BP 135/82
[2020-04-21] MEDS: GLUCERNA SHAKE 237 ML CAN PO SCH ×2 (08:00→16:59)
[2020-04-21] MEDS: DIVALPROEX SODIUM 250 MG TABLET.DR PO SCH ×3 (09:00→16:59)
[2020-04-21] MEDS: BENZTROPINE MESYLATE (1 MG) 1 MG TABLET PO SCH ×2 (09:00→16:59)
[2020-04-21] MEDS: risperiDONE 1 MG TABLET PO SCH ×2 (09:00→16:59)
[2020-04-21] MEDS: Z GUARD REMEDY 2 OZ OINT TP SCH ×2 (09:00→09:23)
[2020-04-21] MEDS: THERAHONEY GEL 1.5 OZ TUBE TP SCH ×2 (09:00→09:24)
[2020-04-21] MEDS: MULTIVIT W/MINERALS 1 TAB TABLET PO SCH (09:00)
[2020-04-21] MEDS: ACIDOPHILUS/BULGARICUS 1 EACH TAB.CHEW PO SCH (09:00)
--- NOTE | 2020-04-21 11:56 | NUR ---
PC Hearing: Pts [phone] hold was upheld on the grounds of danger to others and gravely disabled.
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
[2020-04-21 18:15] VITALS: BP 141/82
[2020-04-21 20:37] VITALS: BP 127/75
[2020-04-22] MEDS: GLUCERNA SHAKE 237 ML CAN PO SCH ×2 (08:20→16:00)
[2020-04-22] MEDS: THERAHONEY GEL 1.5 OZ TUBE TP SCH (08:21)
[2020-04-22] MEDS: Z GUARD REMEDY 2 OZ OINT TP SCH (08:21)
[2020-04-22] MEDS: risperiDONE 1 MG TABLET PO SCH (08:21)
[2020-04-22] MEDS: BENZTROPINE MESYLATE (1 MG) 1 MG TABLET PO SCH ×3 (08:21→16:00)
[2020-04-22] MEDS: DIVALPROEX SODIUM 250 MG TABLET.DR PO SCH ×3 (08:21→16:00)
[2020-04-22] MEDS: ACIDOPHILUS/BULGARICUS 1 EACH TAB.CHEW PO SCH (08:21)
[2020-04-22] MEDS: MULTIVIT W/MINERALS 1 TAB TABLET PO SCH (08:21)
[2020-04-22 08:22] VITALS: BP 150/90
--- NOTE | 2020-04-22 09:00 | NUR ---
RN NOTE- PT WITHDRAWN ISOLATIVE RESPONDING TO INTERNAL STIMULUS ECHOLALIA PRESENT PULLS AT HAIR AND MUMBLES TO SELF, PO INTAKE FAIR REFUSES ALL RX
[2020-04-22] MEDS ORDERED: HALOPERIDOL LACTATE INJ 5 MG/ML VIAL IM PRN (12:30)
[2020-04-22] MEDS ORDERED: BENZTROPINE MESYLATE (2MG/2ML) 2 MG/2 ML AMPUL IM PRN (12:30)
--- NOTE | 2020-04-22 13:30 | NUR ---
Pt was riesed and a copy of the riese paperwork was printed out by the SW and placed in the chart.
[2020-04-22] MEDS: HALOPERIDOL 5 MG TABLET PO SCH (15:57)
--- NOTE | 2020-04-22 16:01 | NUR ---
RN NOTE- PT HAD REISE HEARING AND IS NOW REISED. PT REFUSED HALDOL 5 MG PO AND RECEIVED HALDOL 5 MG IM W STAFF ASSIST.
[2020-04-22 16:10] VITALS: BP 154/94
[2020-04-22 20:22] VITALS: BP 155/91
[2020-04-23 08:00] VITALS: BP 131/72
[2020-04-23] MEDS: ACIDOPHILUS/BULGARICUS 1 EACH TAB.CHEW PO SCH (09:21)
[2020-04-23] MEDS: MULTIVIT W/MINERALS 1 TAB TABLET PO SCH (09:21)
[2020-04-23] MEDS: BENZTROPINE MESYLATE (1 MG) 1 MG TABLET PO SCH ×2 (09:21→17:13)
[2020-04-23] MEDS: HALOPERIDOL 5 MG TABLET PO SCH ×2 (09:21→17:13)
[2020-04-23] MEDS: DIVALPROEX SODIUM 250 MG TABLET.DR PO SCH ×3 (09:21→17:13)
[2020-04-23] MEDS: Z GUARD REMEDY 2 OZ OINT TP SCH (09:22)
[2020-04-23] MEDS: THERAHONEY GEL 1.5 OZ TUBE TP SCH (09:23)
[2020-04-23] MEDS: GLUCERNA SHAKE 237 ML CAN PO SCH ×2 (09:23→17:14)
--- NOTE | 2020-04-23 10:30 | NUR ---
Individual Intervention with the pt: SW attempted to conduct an individual intervention with the pt at bedside but the pt appeared to be paranoid and was not willing to engage. SW deemed the pt inappropriate for individual therapy at this time.
[2020-04-23 16:59] VITALS: BP 146/91
[2020-04-23 20:35] VITALS: BP 141/83
[2020-04-24] MEDS: GLUCERNA SHAKE 237 ML CAN PO SCH ×2 (07:54→16:55)
[2020-04-24 08:00] VITALS: BP 100/70
[2020-04-24] MEDS: HALOPERIDOL 5 MG TABLET PO SCH ×2 (08:35→16:37)
[2020-04-24] MEDS: BENZTROPINE MESYLATE (1 MG) 1 MG TABLET PO SCH ×2 (08:35→16:37)
[2020-04-24] MEDS: DIVALPROEX SODIUM 250 MG TABLET.DR PO SCH ×3 (08:35→16:37)
[2020-04-24] MEDS: ACIDOPHILUS/BULGARICUS 1 EACH TAB.CHEW PO SCH (08:35)
[2020-04-24] MEDS: MULTIVIT W/MINERALS 1 TAB TABLET PO SCH (08:35)
[2020-04-24] MEDS: Z GUARD REMEDY 2 OZ OINT TP SCH (08:39)
[2020-04-24] MEDS: THERAHONEY GEL 1.5 OZ TUBE TP SCH (08:39)
--- NOTE | 2020-04-24 12:37 | NUR ---
RN-CO: NORCO WAS GIVEN FOR GRN BODY PAIN OF 8/10.
--- NOTE | 2020-04-24 13:57 | NUR ---
SNF Referral: JOE faxed a referral to [facility] with attn to Arslan to the fax number: [phone].
[2020-04-24 16:00] VITALS: BP 121/78
[2020-04-24 19:38] VITALS: BP 136/88
[2020-04-25 08:00] VITALS: BP 137/89
[2020-04-25] MEDS: GLUCERNA SHAKE 237 ML CAN PO SCH ×2 (08:03→16:04)
[2020-04-25] MEDS: ACIDOPHILUS/BULGARICUS 1 EACH TAB.CHEW PO SCH (08:32)
[2020-04-25] MEDS: HALOPERIDOL 5 MG TABLET PO SCH ×2 (08:32→16:04)
[2020-04-25] MEDS: DIVALPROEX SODIUM 250 MG TABLET.DR PO SCH ×3 (08:32→16:04)
[2020-04-25] MEDS: BENZTROPINE MESYLATE (1 MG) 1 MG TABLET PO SCH ×2 (08:32→16:04)
[2020-04-25] MEDS: MULTIVIT W/MINERALS 1 TAB TABLET PO SCH (08:32)
[2020-04-25] MEDS: Z GUARD REMEDY 2 OZ OINT TP SCH (08:37)
[2020-04-25] MEDS: THERAHONEY GEL 1.5 OZ TUBE TP SCH (08:37)
--- NOTE | 2020-04-25 09:00 | NUR ---
RN NOTE- PT ALERT ORIENTED PERSON PLACE, CONFUSION, PO INTAKE GOOD MED COMPLIANT. RESPONDING TO INTERNAL STIMULUS
[2020-04-25] MEDS ORDERED: HALOPERIDOL DECANOATE IM 100 MG/ML AMPUL IM ONE (11:00)
[2020-04-25 16:00] VITALS: BP 136/79
--- NOTE | 2020-04-25 18:40 | NUR ---
GPS RN NOTE, PATIENT HAS A COMPLAINT OF NASAL DISCOMFORT AND IS REQUESTING SALINE NASAL SPRAY. PAGED [facility] AND INFORMED REMI FRANCO DNP OF MY FINDINGS. REMI FRANCO DNP ORDERED TO GIVE SALINE NASAL SPRAY TO INSTILL ONE SPRAY EACH NOSTRIL Q6HR PRN. ALL ORDERS NOTED AND CARRIED OUT. WILL CONTINUE TO MONITOR THIS PATIENT Q15 WITH THE HELP OF STAFF.
[2020-04-25] MEDS ORDERED: SALINE NASAL SPRAY 0.65% 1 BOTTLE BOTTLE NS PRN (19:00)
--- NOTE | 2020-04-25 19:30 | NUR ---
GPS RN NOTE, RECEIVED PATIENT AWAKE AND IN BED, HAS NO C/O OF PAIN AT THIS TIME. PATIENT IS DISPLAYING NO S/S OF APPARENT DISTRESS AT THIS TIME. PATIENT BREATHING IS UNLABORED WITH EQUAL RISE AND FALL OF THE CHEST. PATIENT IS ALERT AND ORIENTED X 3 ON ROOM AIR WITH A SPO2 99%. PATIENT IS COMPLIANT MEDICATIONS, HYPERVERBAL, ANXIOUS AT TIMES, CALM, NEEDY, AND COOPERATIVE. PATIENT DENIES SUICIDAL AND HOMICIDAL IDEATIONS AT THIS TIME. PATIENT ASSISTED WITH TURNING AND REPOSITIONING Q2HR AND PRN FOR COMFORT AND CIRCULATION. PATIENT HAS NO NEEDS AT THIS TIME. PATIENT EDUCATED ON THE USE OF THE CALL OJHN. PATIENT BED SIDE RAILS UP X 2 FOR SAFETY. PATIENT BED IS LOCKED, LOW, WITH BED ALARM ON. WILL CONTINUE TO MONITOR THIS PATIENT Q15 MINUTES WITH THE HELP OF STAFF TO MAINTAIN SAFETY.
--- NOTE | 2020-04-25 19:56 | NUR ---
GPS RN NOTE, PATIENT HAS A COMPLAINT OF NASAL DISCOMFORT AND IS REQUESTING SALINE NASAL SPRAY. GAVE SALINE NASAL SPRAY ONE SPRAY EACH NOSTRIL Q6HR PRN. WILL CONTINUE TO MONITOR THIS PATIENT Q15 WITH THE HELP OF STAFF.
[2020-04-26] MEDS: GLUCERNA SHAKE 237 ML CAN PO SCH ×2 (07:49→17:26)
[2020-04-26 08:00] VITALS: BP 142/89
[2020-04-26] MEDS: HALOPERIDOL 5 MG TABLET PO SCH ×2 (08:04→16:07)
[2020-04-26] MEDS: BENZTROPINE MESYLATE (1 MG) 1 MG TABLET PO SCH ×2 (08:04→16:07)
[2020-04-26] MEDS: ACIDOPHILUS/BULGARICUS 1 EACH TAB.CHEW PO SCH (08:04)
[2020-04-26] MEDS: MULTIVIT W/MINERALS 1 TAB TABLET PO SCH (08:04)
[2020-04-26] MEDS: DIVALPROEX SODIUM 250 MG TABLET.DR PO SCH ×3 (08:04→16:07)
[2020-04-26] MEDS: THERAHONEY GEL 1.5 OZ TUBE TP SCH (08:18)
[2020-04-26] MEDS: Z GUARD REMEDY 2 OZ OINT TP SCH (08:19)
--- NOTE | 2020-04-26 12:25 | NUR ---
RN-CO: MANDOLIN REPAIRER found patient sitting on the floor in the bathroom. When patient was asked, he stated he sat on the floor because he felt weak because he almost choke. Rapid response was called, and assisted us to sit the patient on the chair. His vital signs are as follows, 127/70, 18,97.5, 70, 98%, 0/10. I called Dr Merino to obtain orders, he ordered STAT CBC,BMP AND SOFT TISSUE NECK X RAY NOTED AND CARRIED OUT. Print Production Manager Andres was here and we asked patient again if he sat on the floor intentionally , pt said "yes, I sat on the floor, I did not fall." Dr Valdez (space and missile operations for today)made aware. Tried to call his mother Mari Tellez [phone] her phone is not a working number.
[2020-04-26] MEDS: ACETAMINOPHEN 325 MG TABLET PO PRN (13:10)
--- NOTE | 2020-04-26 13:15 | NUR ---
RN-CO: PATIENT REQUESTED FOR TYLENOL 650 MG FOR C/O 07/02 LEFT FOOT WOUND PAIN.
--- NOTE | 2020-04-26 13:20 | NUR ---
RN-CO: PATIENT STATED " I FEEL A LOT BETTER NOW." NOTED THAT HE IS MORE COOPERATIVE THAN 2 DAYS AGO. AND HE IS MORE POLITE WHEN STAFF APPROACH HIM.
[2020-04-26 13:30] LABS: HEMOGLOBIN 10.5 g/dL (13.5-17.5); RED BLOOD CELL COUNT(AUTO) 3.59 MIL/uL (4.5-6.0)
[2020-04-26 13:36] LABS: BASOPHILS % (AUTO) 0.3 % (0.0-2.0); EOSINOPHILS % (AUTO) 2.3 % (0.0-6.0); HEMATOCRIT 31 % (39-51); LYMPHOCYTES % (AUTO) 15.8 % (20.0-44.0); MEAN CORPUSCULAR HGB CONC 34 g/dl (31.0-36.0); MEAN CORPUSCULAR VOLUME 87 fL (80-96); MONOCYTES # (AUTO) 0.3 /CMM (0.1-1.30); MONOCYTES % (AUTO) 4.7 % (2.0-12.0); NEUTROPHILS % (AUTO) 76.9 % (43.0-81.0); PLATELET COUNT (AUTO) 343 /CMM (150-450); WHITE BLOOD COUNT (AUTO) 6.5 K/uL (4.3-11.0)
[2020-04-26 14:29] LABS: CALCIUM, SERUM 8.9 mg/dL (8.5-10.1); CREATININE 1.3 mg/dL (0.6-1.3); POTASSIUM 4.3 mmol/L (3.5-5.1)
--- NOTE | 2020-04-26 14:35 | NUR ---
RN-CO: WOUND CARE WAS DONE FOR TODAY, PT DENIED PAIN AND DISCOMFORTS.
[2020-04-26 16:00] VITALS: BP 109/69
--- NOTE | 2020-04-26 16:45 | NUR ---
RN-CO: Made a follow up for Dr Merino order of x ray of neck soft tissue, golf technician said around 5-6 pm. Pt remains calm and denying pain and discomforts.
--- NOTE | 2020-04-26 17:32 | NUR ---
RN-CO: PROFESSIONAL POKER PLAYER IS HERE.
[2020-04-26 18:49] VITALS: BP 127/70
--- NOTE | 2020-04-26 19:30 | NUR ---
GPS RN NOTE, RECEIVED PATIENT AWAKE AND IN BED, HAS NO C/O OF PAIN AT THIS TIME. PATIENT IS DISPLAYING NO S/S OF APPARENT DISTRESS AT THIS TIME. PATIENT BREATHING IS UNLABORED WITH EQUAL RISE AND FALL OF THE CHEST. PATIENT IS ALERT AND ORIENTED X 3 ON ROOM AIR WITH A SPO2 99%. PATIENT IS COMPLIANT MEDICATIONS, HYPERVERBAL, ANXIOUS AT TIMES, CALM, NEEDY, AND COOPERATIVE. PATIENT DENIES SUICIDAL AND HOMICIDAL IDEATIONS AT THIS TIME. PATIENT ASSISTED WITH TURNING AND REPOSITIONING Q2HR AND PRN FOR COMFORT AND CIRCULATION. PATIENT HAS NO NEEDS AT THIS TIME. PATIENT EDUCATED ON THE USE OF THE CALL JOHN. PATIENT BED SIDE RAILS UP X 2 FOR SAFETY. PATIENT BED IS LOCKED, LOW, WITH BED ALARM ON. WILL CONTINUE TO MONITOR THIS PATIENT Q15 MINUTES WITH THE HELP OF STAFF TO MAINTAIN SAFETY.
[2020-04-26 20:56] VITALS: BP 127/84
[2020-04-26 23:16] VITALS: BP 127/84
[2020-04-27 08:00] VITALS: BP 135/88
[2020-04-27] MEDS: GLUCERNA SHAKE 237 ML CAN PO SCH ×2 (08:06→16:39)
--- NOTE | 2020-04-27 08:30 | NUR ---
RN NOTE- MED PASS. PT TOOK ALL RX. RN DISPOSED OF MEDICATION BLISTER PACKS BEFORE SCANNING.
--- NOTE | 2020-04-27 09:00 | NUR ---
RN NOTE- PATIENT ALERT ORIENTED TO PERSON PLACE, NEEDY AT TIMES, MAKES NEEDS KNOWN. VOIDING IN URINAL, REGULAR BMS, CHANGED AND WASHED PT THIS MORNING, PO INTAKE GOOD, MED COMPLIANT, RESPONDING TO INTERNAL STIMULUS, MENTALLY PREOCCUPIED THOUGH LESS THAN PREVIOUSLY
[2020-04-27] MEDS: HALOPERIDOL 5 MG TABLET PO SCH ×2 (09:01→16:38)
[2020-04-27] MEDS: THERAHONEY GEL 1.5 OZ TUBE TP SCH (09:01)
[2020-04-27] MEDS: DIVALPROEX SODIUM 250 MG TABLET.DR PO SCH ×3 (09:01→16:38)
[2020-04-27] MEDS: BENZTROPINE MESYLATE (1 MG) 1 MG TABLET PO SCH ×2 (09:01→16:38)
[2020-04-27] MEDS: Z GUARD REMEDY 2 OZ OINT TP SCH (09:01)
[2020-04-27] MEDS: MULTIVIT W/MINERALS 1 TAB TABLET PO SCH (09:01)
[2020-04-27] MEDS: ACIDOPHILUS/BULGARICUS 1 EACH TAB.CHEW PO SCH (09:01)
--- NOTE | 2020-04-27 10:00 | NUR ---
RN NOTE- WOUND CARE/ PT DRESSING CHANGE PERFORMED ON LEFT HEEL AT THIS TIME. OLD DRESSING REMOVED, SERO-SANGUINOUS DRAINAGE PRESENT, ERYTHEMA, NO EDEMA, NO PURULENCE, NO ODOR OR SX OF INFECTION. PINK GRANULATION TISSUE TO WOUND BED. RESOLVING WELL. WOUND HONEY APPLIED AFTER CLEANSING W NS, STERILE GAUZE APPLIED WRAPPED W KERLIX TAPED SECURELY. TOLERATED WELL
[2020-04-27 16:00] VITALS: BP 142/90
--- NOTE | 2020-04-27 20:00 | NUR ---
GPS-RN NOTE: PATIENT REFUSED WEEKLY SKIN ASSESSMENT.
[2020-04-27 20:19] VITALS: BP 115/75
[2020-04-28] MEDS: GLUCERNA SHAKE 237 ML CAN PO SCH ×2 (08:03→16:17)
[2020-04-28 08:14] VITALS: BP 118/67
[2020-04-28] MEDS: ACIDOPHILUS/BULGARICUS 1 EACH TAB.CHEW PO SCH (08:19)
[2020-04-28] MEDS: DIVALPROEX SODIUM 250 MG TABLET.DR PO SCH ×3 (08:19→16:16)
[2020-04-28] MEDS: THERAHONEY GEL 1.5 OZ TUBE TP SCH (08:20)
[2020-04-28] MEDS: BENZTROPINE MESYLATE (1 MG) 1 MG TABLET PO SCH ×2 (08:20→16:16)
[2020-04-28] MEDS: Z GUARD REMEDY 2 OZ OINT TP SCH (08:20)
[2020-04-28] MEDS: MULTIVIT W/MINERALS 1 TAB TABLET PO SCH (08:20)
[2020-04-28] MEDS: HALOPERIDOL 5 MG TABLET PO SCH ×2 (08:20→16:16)
--- NOTE | 2020-04-28 09:00 | NUR ---
RN NOTE- PATIENT MORE ALERT ORIENTED TO PERSON PLACE, NEEDY AT TIMES, MAKES NEEDS KNOWN. VOIDING IN URINAL, PO INTAKE GOOD, MED COMPLIANT, RESPONDING TO INTERNAL STIMULUS, MENTALLY PREOCCUPIED THOUGH LESS THAN PREVIOUSLY
--- NOTE | 2020-04-28 10:11 | NUR ---
RN NOTE- WOUND CARE/ PT DRESSING CHANGE PERFORMED ON LEFT HEEL AT THIS TIME. OLD DRESSING REMOVED, SERO-SANGUINOUS DRAINAGE PRESENT, ERYTHEMA, NO EDEMA, NO PURULENCE, NO ODOR OR SX OF INFECTION. PINK GRANULATION TISSUE TO WOUND BED. RESOLVING WELL. WOUND HONEY APPLIED AFTER CLEANSING W NS, STERILE GAUZE APPLIED WRAPPED W KERLIX TAPED SECURELY. TOLERATED WELL. PHOTOGRAPH TAKEN FOR CHART.
--- NOTE | 2020-04-28 10:51 | NUR ---
EARLY ENTRY/DISCHARGE NOTE for 04/29/20: Patient will be discharged to long term facility, [facility] [phone] ([phone]) via Ambulance transportation. Please arrange ambulance transportation at 11am. Emissions Testing And Repair Technician spoke with Ryland, Shoe Folder at [facility] ([phone]), who confirmed that patient will be accepted at their facility. Patient does not have any family or next of kin contacts at this time. Patient is alert and oriented x4. Patient is not able to plan for self-care at this time but is willing to accept care provided for him at the facility. Patient denies suicidal or homicidal ideation. Patient is aware and agreeable with discharge plans. Patient presents with appropriate mood and congruent affect. Patient will follow-up with Psychiatrist Dr. Shelton and C[facility] Dr. Oliva at [address] [address] ([phone]).
[2020-04-28 15:18] VITALS: BP 160/84
--- NOTE | 2020-04-28 15:20 | NUR ---
RN NOTE- PT TESTED CVID FOR PLACEMENT. LAB CALLED PT IS NEGATIVE.
[2020-04-28 20:15] VITALS: BP 129/66
[2020-04-29 07:49] LABS: BASOPHILS % (AUTO) 0.4 % (0.0-2.0); EOSINOPHILS % (AUTO) 4.1 % (0.0-6.0); HEMATOCRIT 32 % (39-51); HEMOGLOBIN 10.7 g/dL (13.5-17.5); LYMPHOCYTES # (AUTO) 1.4 /CMM (0.8-4.8); LYMPHOCYTES % (AUTO) 27.6 % (20.0-44.0); MEAN CORPUSCULAR HGB CONC 34 g/dl (31.0-36.0); MEAN CORPUSCULAR VOLUME 87 fL (80-96); MONOCYTES # (AUTO) 0.3 /CMM (0.1-1.30); MONOCYTES % (AUTO) 6.8 % (2.0-12.0); NEUTROPHILS % (AUTO) 61.1 % (43.0-81.0); PLATELET COUNT (AUTO) 324 /CMM (150-450); RED BLOOD CELL COUNT(AUTO) 3.63 MIL/uL (4.5-6.0); WHITE BLOOD COUNT (AUTO) 4.9 K/uL (4.3-11.0)
[2020-04-29] MEDS: MULTIVIT W/MINERALS 1 TAB TABLET PO SCH (08:08)
[2020-04-29] MEDS: BENZTROPINE MESYLATE (1 MG) 1 MG TABLET PO SCH ×2 (08:08→16:47)
[2020-04-29] MEDS: Z GUARD REMEDY 2 OZ OINT TP SCH (08:08)
[2020-04-29] MEDS: ACIDOPHILUS/BULGARICUS 1 EACH TAB.CHEW PO SCH (08:08)
[2020-04-29] MEDS: GLUCERNA SHAKE 237 ML CAN PO SCH ×2 (08:08→16:48)
[2020-04-29] MEDS: HALOPERIDOL 5 MG TABLET PO SCH ×2 (08:08→16:47)
[2020-04-29] MEDS: THERAHONEY GEL 1.5 OZ TUBE TP SCH (08:08)
[2020-04-29] MEDS: DIVALPROEX SODIUM 250 MG TABLET.DR PO SCH ×3 (08:08→16:47)
[2020-04-29 08:34] LABS: CALCIUM, SERUM 9.1 mg/dL (8.5-10.1); CREATININE 1.3 mg/dL (0.6-1.3); POTASSIUM 4.1 mmol/L (3.5-5.1)
--- NOTE | 2020-04-29 17:30 | NUR ---
RN DC NOTE- PT DC AT THIS TIME VIA GURNEY AND AMBULANCE TO [facility]. PT IS ALERT ORIENTED TO PERSON PLACE PURPOSE. VS STABLE REFUSES PHOTOGRAPHS OF LEGS. PHOTOGRAPHS TAKEN OF LEFT HEEL. PLACED IN CHART. PT VALUABLES RETURNED TO PT. PT DENIES SI HI AH VH. AFTERCARE REVIEWED AND REPORT CALLED IN TO [facility] AT FACILITY. ESCORTED OFF UNIT BY THIS RN.
== END 2020-04-29 17:30 | disposition home or self-care (01) | DRG 876 ==
LOC: UNDOADMIN 16:57 → GPS 16:57
PROVIDERS: ADMIT Nurse Practitioner Acute Care; ATTEND Internal Medicine
PROC: 0JBR0ZZ Excision of Left Foot Subcutaneous Tissue and Fascia, Open Approach (ICD-10-PCS; principal; 2020-04-16)
DX: F25.0 Schizoaffective disorder, bipolar type (principal); M86.9 Osteomyelitis, unspecified; E11.65 Type 2 diabetes mellitus with hyperglycemia; E44.0 Moderate protein-calorie malnutrition; L97.429 Non-pressure chronic ulcer of left heel and midfoot with unspecified severity; I10 Essential (primary) hypertension; R62.7 Adult failure to thrive; Z91.14 Patient's other noncompliance with medication regimen; Z73.6 Limitation of activities due to disability; E11.69 Type 2 diabetes mellitus with other specified complication; K21.9 Gastro-esophageal reflux disease without esophagitis; F29 Unspecified psychosis not due to a substance or known physiological condition; E11.621 Type 2 diabetes mellitus with foot ulcer; E11.40 Type 2 diabetes mellitus with diabetic neuropathy, unspecified; M20.41 Other hammer toe(s) (acquired), right foot; M20.42 Other hammer toe(s) (acquired), left foot; Z91.19 Patient's noncompliance with other medical treatment and regimen
CPT/HCPCS: 36415; 70360-TC; 71045-TC; 80048-TC; 80061-TC; 82962-TC; 83735-TC; 84100-TC; 84443-TC; 85025-TC; 92526; 92611-TC; J1630; J1631